=== PATIENT | male | born 1960 | race Caucasian/White ===

== ENCOUNTER 2018-04-07 06:10 | Day surgery (SDC) | payer MEDICARE, SELFPAY ==
[2018-04-07 06:58] VITALS: BP 117/78; PULSE 77; RESP 16; TEMP 36.9; O2SAT 99; BMI 28.2
[2018-04-07] MEDS: Cefazolin 2 GM in 0.9% Normal Saline 100 ML IV (08:21)
[2018-04-07] MEDS: Bupivacaine Mpf 0.5% 30 ML VIAL (09:18)
--- NOTE | 2018-04-07 09:19 | DCINST_ITS ---
Discharge Diet: Light diet - advance as tolerated Discharge Activity: Return to Normal Activity, May Not Drive - for 2-3 days or while taking narcotic pain meds., May Shower - with the bandage in place 1-2 days after surgery. Lifting Restrictions: 20 pounds for 2 weeks. Additional Activity Instructions:: Climbing stairs is fine, walking is encouraged. Sitting in bed may be uncomfortable. Sitting up using your lateral muscles (sitting up sideways) is usually more comfortable. Do not drive, work heavy equipment of sign legal documents for 24 hours. If your hernia repair was an ingunial repair, you may have scrotal swelling, an ice pack and/or athletic support can provide more comfort. Pain medications may cause nausea, you should typically eat light foods as you take your pain medications. Pain medications may also cause constipation. If you have difficulty with this, discuss with your doctor. Call your doctor if your incision/area has: Continuous Slow Oozing, Sudden Increased Bleeding, Increased Pain/ Swelling, Increased Redness, Foul Smelling Discharge Call your doctor if you observe: Fever of 101 or Higher, Inability to urinate Suture Line Care: Avoid Pulling/Pushing, Avoid Pinching/Bending Change Dressing in (Days):: 2 - Leave steri-strips for 1 week. May protect with a guaze bandaid. Cleanse incision/area with: Keep Dressing Clean & Dry Allergies/Adverse Reactions: Allergies No Known Allergies Allergy (Verified 03/31/18 14:07) Medications to take at Discharge aspirin 81 mg chewable tablet 81 mg PO DAILY 02/04/18 dexlansoprazole 60 mg capsule,biphase delayed release 60 mg PO QDAY 02/04/18 lisinopril 20 mg tablet 20 mg PO QDAY 02/04/18 loratadine 10 mg tablet 10 mg PO QDAY 02/04/18 multivitamin tablet 1 tab PO QAM 02/04/18 quetiapine 25 mg tablet 25 mg PO BID tab 02/04/18 atorvastatin 20 mg tablet 20 mg PO QDAY #90 tab 04/02/18 Oxycodone HCl/Acetaminophen [Percocet 5/325] 1 - 2 tablet PO Q4H PRN PRN 7 Days #15 tablet 04/07/18 The following prescriptions were given: Oxycodone HCl/Acetaminophen [Percocet 5/325] 1 - 2 tablet PO Q4H PRN PRN 7 Days #15 tablet PRN Reason: Pain Primary Care Physician: Vincenzo Ibarra, [Primary Care Provider] - Please Follow Up With: Glenroy Cohen MD When: Please call tomorrow to schedule 2 week follow up appointment. [phone]
--- NOTE | 2018-04-07 09:19 | PCM.OPRPT ---
Problem List (1) Left inguinal hernia Status: Acute Report of Operation Date of Procedure: 04/07/18 Pre-Operative Diagnosis: Left inguinal hernia Post-Operative Diagnosis: Left inguinal hernia Surgery/Procedure Performed:: Robotic assisted laparoscopic left inguinal hernia repair with mesh Description of Surgical Findings:: Patient had a left indirect hernia. Specimen's removed: None Description of Procedure: The patient was brought back to the operating room and general anesthesia was induced. Next the abdomen was prepped and draped in usual sterile fashion. A small incision was made superior to the umbilicus and the fascia was grasped and elevated. A Veress needle was placed into the abdomen and a drop test was completed and was normal. Next the abdomen was insufflated 15 mmHg. The Veress needle was removed and the camera port was placed into the abdomen. The camera was then placed into the abdomen to check for any injuries upon entry and there were none. Next the inguinal regions were examined and it appeared the patient had a left indirect hernia. The right groin appeared normal. Next an 8 port was placed in the right lower quadrant and left lower quadrant under direct visualization. The patient was then placed in the steep Trendelenburg position and the robot was docked. Next using scissors and electrocautery the peritoneum was scored in the left groin and dissected free. The dissection was carried inferiorly until the hernia sac was encountered. The hernia sac was reduced into the abdomen and dissected free from all adhesions. This dissection was carried posteriorly to allow enough room for the mesh to fit. There did not appear to be a direct hernia. Next a piece of pro-yarn sorter mesh was trimmed and placed into the abdomen. This was placed in the left inguinal region and unfolded. This covered the hernia very adequately. The peritoneum was then reapproximated using a running 3-0V lock suture. The mesh was completely covered at the end of the case. The abdomen was inspected once more and there appeared to be good hemostasis and coverage of the mesh. Next the robot was undocked and the patient was placed in level position and the ports removed under direct visualization. All incisions were then anesthetized with Marcaine and closed with interrupted 4-0 Monocryl sutures, Steri-Strips, and bandages. The testicles were checked to be in the scrotum at the end the case. The patient tolerated the procedure well and was brought to PACU in stable condition. Grafts/Implants Used: Pro-yarn sorter mesh - Admit VTE Documentation VTE Mechan Device Prophylaxis: SCD's
--- NOTE | 2018-04-07 09:23 | OP.PCM_ITS ---
Problem List (1) Left inguinal hernia Status: Acute Report of Operation Date of Procedure: 04/07/18 Pre-Operative Diagnosis: Left inguinal hernia Post-Operative Diagnosis: Left inguinal hernia Surgery/Procedure Performed:: Robotic assisted laparoscopic left inguinal hernia repair with mesh Description of Surgical Findings:: Patient had a left indirect hernia. Specimen's removed: None Description of Procedure: The patient was brought back to the operating room and general anesthesia was induced. Next the abdomen was prepped and draped in usual sterile fashion. A small incision was made superior to the umbilicus and the fascia was grasped and elevated. A Veress needle was placed into the abdomen and a drop test was completed and was normal. Next the abdomen was insufflated 15 mmHg. The Veress needle was removed and the camera port was placed into the abdomen. The camera was then placed into the abdomen to check for any injuries upon entry and there were none. Next the inguinal regions were examined and it appeared the patient had a left indirect hernia. The right groin appeared normal. Next an 8 port was placed in the right lower quadrant and left lower quadrant under direct visualization. The patient was then placed in the steep Trendelenburg position and the robot was docked. Next using scissors and electrocautery the peritoneum was scored in the left groin and dissected free. The dissection was carried inferiorly until the hernia sac was encountered. The hernia sac was reduced into the abdomen and dissected free from all adhesions. This dissection was carried posteriorly to allow enough room for the mesh to fit. There did not appear to be a direct hernia. Next a piece of pro-manager front office mesh was trimmed and placed into the abdomen. This was placed in the left inguinal region and unfolded. This covered the hernia very adequately. The peritoneum was then reapproximated using a running 3-0V lock suture. The mesh was completely covered at the end of the case. The abdomen was inspected once more and there appeared to be good hemostasis and coverage of the mesh. Next the robot was undocked and the patient was placed in level position and the ports removed under direct visualization. All incisions were then anesthetized with Marcaine and closed with interrupted 4-0 Monocryl sutures, Steri-Strips, and bandages. The testicles were checked to be in the scrotum at the end the case. The patient tolerated the procedure well and was brought to PACU in stable condition. Grafts/Implants Used: Pro-manager front office mesh - Admit VTE Documentation VTE Mechan Device Prophylaxis: SCD's
[2018-04-07 09:30] VITALS: BP 117/78; BP 131/80; PULSE 82; RESP 18; TEMP 36.6; O2SAT 100
[2018-04-07 09:45] VITALS: BP 112/80; BP 117/78; PULSE 83; RESP 18; O2SAT 94
[2018-04-07 10:00] VITALS: BP 114/70; BP 117/78; PULSE 77; RESP 18; TEMP 36.9; O2SAT 99
[2018-04-07 11:28] VITALS: BP 117/71; BP 117/78; PULSE 90; RESP 20; O2SAT 97
== END 2018-04-07 11:31 | disposition home or self-care (01) ==
LOC: SDC 06:11 → AC 06:14
PROVIDERS: Family Provider Family Medicine; PCP Family Medicine; Visit Provider Surgery
PROC: 0YQ64ZZ Repair Left Inguinal Region, Percutaneous Endoscopic Approach (ICD-10-PCS; CPT 49650; principal; 2018-04-07 07:40)
DX: K40.90 Unilateral inguinal hernia, without obstruction or gangrene, not specified as recurrent (principal); K21.9 Gastro-esophageal reflux disease without esophagitis; E78.00 Pure hypercholesterolemia, unspecified; F32.9 Major depressive disorder, single episode, unspecified; Z79.82 Long term (current) use of aspirin; Z79.899 Other long term (current) drug therapy; Z87.891 Personal history of nicotine dependence
CPT/HCPCS: 00840; 49650; 93005; J7120; J2405

== ENCOUNTER → 2018-05-26 09:27 | Outpatient (CLI) | payer MEDICARE, SELFPAY ==
[2018-05-26 11:12] LABS: ALB/GLOB Ratio 1.1 RATIO (0.9-2.4); AST(SGOT) 18 U/L (15-37); Alanine Aminotransfer ALT/SGPT 32 U/L (16-61); Albumin, Serum 4.3 g/dL (3.2-5.0); Alkaline Phosphatase 94 U/L (45-117); Anion Gap 10 (5-15); BUN 23 mg/dL (7-18); BUN/Creat Ratio 22.8 RATIO (10-20); Calcium,Total 8.9 mg/dL (8.5-10.1); Chloride 106 mmol/L (98-107); Cholesterol 194 mg/dL (200); Creatinine, Serum 1.01 mg/dL (0.70-1.30); EST Glomerular Filtration Rate 81 mL/min (>60); Est Glom Filt Rate - Afr Amer 98 mL/min (>60); Glucose 113 mg/dL (74-106); High Density Lipoprotein 60 mg/dL; Protein, Total 8.3 g/dL (6.4-8.2); Sodium Level 140 mmol/L (136-145); Triglycerides 87 mg/dL; Very Low Density Lipoprotein 17 mg/dL (5-40)
== END ==
PROVIDERS: Family Provider Family Medicine; PCP Family Medicine; Visit Provider Family Medicine
DX: I10 Essential (primary) hypertension (principal); E78.5 Hyperlipidemia, unspecified
CPT/HCPCS: 36415; 80053; 80061

== ENCOUNTER → 2018-09-24 14:20 | Outpatient (CLI) | payer MEDICARE, SELFPAY ==
[2018-09-24 13:35] VITALS: BMI 27.1
--- NOTE | 2018-09-24 14:22 | RAD_ITS ---
STUDY: X-RAY - RIGHT KNEE REASON FOR EXAM: Male, 58 years old. Anterior knee pain and patellar pain following a fall. TECHNIQUE: 3 view(s) of the knee. COMPARISON: None. FINDINGS: There is evidence of a nondisplaced transverse fracture through the midportion of the patella. Normal visualized distal femur. The patient is status post open reduction and internal fixation of the tibial plateau fracture utilizing a sideplate and screw fixation device. Normal proximal tibiofibular articulation. There is mild degenerative arthrosis of the medial femorotibial compartment. Normal lateral femorotibial compartment. Normal patellofemoral articulation. Prepatellar soft tissue swelling. Small joint effusion. RAD/Knee 3 Views IMPRESSION: Nondisplaced fracture through the midportion of the patella with soft tissue swelling and small joint effusion. Prior open reduction and internal fixation of the proximal tibial plateau Electronically Signed: Felipe Cary MD at 14:50 EST Tel [phone], Service support ,
== END ==
PROVIDERS: Family Provider Family Medicine; PCP Family Medicine; Referring Provider Family Medicine; Visit Provider Family Medicine
DX: M25.561 Pain in right knee (principal)
CPT/HCPCS: 73562

== ENCOUNTER 2018-10-02 07:52 | Day surgery (SDC) | payer MEDICARE, SELFPAY ==
[2018-09-28 08:28] VITALS: BMI 27.1
[2018-10-02] VITALS (7 sets, daily range): BP systolic 128–150; BP diastolic 84–95; PULSE 79–93; RESP 14–16; TEMP 36.7–37.1; O2SAT 95–100; BMI 27.2
[2018-10-02 08:27] LABS: Hematocrit 39.7 % (40-54); Hemoglobin 12.6 g/dl (13.0-16.5); Mean Corp Hgb Conc 31.7 g/gl (32-36); Mean Corpuscular Hgb 30.9 pg (27.0-32.0); Mean Corpuscular Volume 97.3 fL (80-94); Mean Platelet Vol. 10.4 fl (6.2-12.0); Platelet Count 367 K/mm3 (150-450); RBC Distribution Width CV 12.3 % (11.6-14.6); RBC Distribution Width SD 43.8 fl (35.1-43.9); Red Blood Count 4.08 M/mm3 (4.6-6.2); Scan Indicated on CBC? Y/N NO; White Blood Count 10.6 K/mm3 (4.4-11.0)
--- NOTE | 2018-10-02 10:00 | RAD_ITS ---
STUDY: X-RAY - RIGHT KNEE REASON FOR EXAM: Male, 58 years old. ORIF of the patellar fracture. TECHNIQUE: 2 coned-down view(s) of the knee. COMPARISON: None. FINDINGS: Satisfactory screw fixation of the patellar fracture. RAD/Knee 1 or 2 Views IMPRESSION: Satisfactory screw fixation of the patellar fracture. Electronically Signed: Felipe Cary MD at 13:02 EST Tel [phone], Service support ,
[2018-10-02] MEDS: Cefazolin 2 GM in 0.9% Normal Saline 100 ML IV (10:41)
[2018-10-02] MEDS: Mupirocin Ointment 22gm Tube 1 APPLIC (12:12)
--- NOTE | 2018-10-02 12:41 | DCINST_ITS ---
Discharge Diet: No Restrictions - wbat left leg with knee locked in extension, knee locked in extension at night, may range knee 0-30 when seated, follow up in 2 weeks, ankle pumps, ice 20 mins on/off, and elevate leg above heart Discharge Activity: May Not Drive May shower in (days): 1 Ice area for (Minutes): 20 - Every hour while awake. Weight Bearing Status: Weight bearing as tolerated Keep extremity elevated above heart level: Operative Extremity Call your doctor if your incision/area has: Continuous Slow Oozing, Sudden Increased Bleeding, Increased Pain/ Swelling, Increased Redness, Foul Smelling Discharge Call your doctor if you observe: Fever of 101 or Higher, Coldness, Increased Pain, Numbness or Tingling, Change in Color, Calf discomfort Allergies/Adverse Reactions: Allergies No Known Allergies Allergy (Verified 09/30/18 10:42) Medications to take at Discharge aspirin 81 mg chewable tablet 81 mg PO DAILY 02/04/18 loratadine 10 mg tablet 10 mg PO QDAY 02/04/18 multivitamin tablet 1 tab PO QAM 02/04/18 naproxen 500 mg tablet 500 mg PO BID #60 tab 09/24/18 Atorvastatin Calcium [Lipitor] 20 mg PO QDAY 09/30/18 Dexlansoprazole [Dexilant] 60 mg PO QDAY 09/30/18 Lisinopril 20 mg PO QDAY 09/30/18 Quetiapine Fumarate [Seroquel] 25 mg PO BID 09/30/18 Primary Care Physician: Vincenzo Ibarra DO [Primary Care Provider] - Test Results: Test results from this visit will be discussed in further detail at your follow- up appointment, if applicable. Please Follow Up With: Dione Agosto DO - [phone]
--- NOTE | 2018-10-02 12:41 | PCM.OPRPT ---
Report of Operation Date of Procedure: 10/02/18 Pre-Operative Diagnosis: left displaced patella fracture Post-Operative Diagnosis: same Surgery/Procedure Performed:: orif left patella document control assistant: Mary Villanueva Type of Anesthesia:: General Anesthesiologist: Mati Patterson Replaced: 1200cc LR Description of Procedure: Preop note Patient is a 58-year-old male with significant past medical history who fell and had pain in his right patella had pain and deformity since that time was seen in our office noted to have a transverse patella fracture malaligned displaced. Risks benefits and alternatives surgery discussed with patient. Risks include but not limited to blood loss, blood clot, infection, neurovascular injury, failure procedure, loss of life and loss of limb. Patient is aware please note comorbidities decreased function of this leg secondary to injury he sustained many years ago to the right tib-fib. We will continue with right open reduction internal internal fixation of the patella. Operative note Patient seen and examined preoperative holding area. right knee was marked. Patient is brought to the operating room placed supine on the operating table. Sign in, anesthesia, antibiotics were administered. right leg was prepped and draped in usual sterile fashion with a tourniquet around his upper thIgh. Used fluoroscopy to ascertain the level of the incision and the site of the fracture. Timeout was performed. We then elevated exsanguinated the leg and tourniquet was raised her pressure 250 torr. We then made an incision over the top of his knee extending just proximal to his patella proximal pole and going down to about 2-3 cm past his distal pole of his patella. We used a 10 blade. We then dissected down times the level of the retinaculum we were able to palpate the fracture we then curetted the fracture out with a curette debrided out for any loose pieces. We then used irrigation to further irrigate the joint as well as the fracture pieces into this and copious amounts of sterile saline. We then placed a pointed clamps across the fracture site and reduced it noted in fluoroscopy and AP lateral planes good reduction of the fracture site that point. We then picked out her K wire in the back table and placed that across the fracture site and after placing the K wires we then bovied down to its the insertion into the patella and over drilled to the plate out a 4.5 screws there cannulated Synthes screws. We then placed our 3.2 drill across the K wires going the proximal aspect of the incision of the fracture but not across the fracture site itself. We then measured appropriately and placed to 4.5 cannulated partially threaded screws across the fracture site. We noted good reduction of the fracture site at that point. We then placed a fiber tape through the screws in a crisscross fashion and then again noted to be better reduction at that point. We then placed a #2 FiberWire closed in a retinaculum that we did see and also did a FiberWire #2 FiberWire in a cerclage fashion around the entire patella. We irrigated the knee with copious amounts of sterile saline. We oversewed the retinaculum on top of the at the site of the fracture with 0 Vicryl the skin was closed with 2-0 Vicryl and eleno and knee locked in extension was placed in a hinged brace. Brace will be unlocked from 0-30 during flexion and 0 extension during ambulation and at night. Patient transferred to recovery room in stable condition there is no complications. Total tourniquet time was 60 minutes. Postoperative note Weight-bear as tolerated right leg Follow-up in 2 weeks Prescriptions at Hospital pharmacy Call with increased pain numbness tingling or further issues arise Told to elevate ice ankle pumps This note was generated with [employer] dictation software. It may contain incorrect words, spelling, and punctuation that were not noted in checking the note before signing.
[2018-10-02] MEDS: Ondansetron 4 MG/2 ML Vial IV (14:45)
[2018-10-02] MEDS: HYDROcodone Bitartrate/Apap 5/325 Tablet PO (14:45)
== END 2018-10-02 16:07 | disposition home or self-care (01) ==
LOC: SDC 07:52 → AC 07:53
PROVIDERS: Anesthesiology; Family Provider Family Medicine; PCP Family Medicine; Referring Provider Orthopaedic Surgery; Visit Provider Orthopaedic Surgery
PROC: (CPT 27524; principal; 2018-10-02 09:45)
DX: S82.031A Displaced transverse fracture of right patella, initial encounter for closed fracture (principal); W19.XXXA Unspecified fall, initial encounter; Y93.9 Activity, unspecified; Y92.89 Other specified places as the place of occurrence of the external cause; Y99.9 Unspecified external cause status; I10 Essential (primary) hypertension; F31.9 Bipolar disorder, unspecified; E78.5 Hyperlipidemia, unspecified; Z87.891 Personal history of nicotine dependence
CPT/HCPCS: 27524; 36415; 73560; 76000; 85027; J7120; J2405

== ENCOUNTER → 2018-10-15 09:05 | Outpatient (CLI) | payer MEDICARE, SELFPAY ==
[2018-10-15 08:46] VITALS: BMI 27.2
--- NOTE | 2018-10-15 09:07 | RAD_ITS ---
STUDY: X-RAY - RIGHT KNEE REASON FOR EXAM: Postsurgical follow-up. TECHNIQUE: 2 view(s) of the knee. COMPARISON: Radiographs 09/24/2018. FINDINGS: Normal visualized distal femur. There is chronic fracture deformity of the tibial plateau with intact orthopedic hardware. There are 2 orthopedic screws transfixing a recent patellar fracture with anatomic alignment. Normal medial femorotibial compartment. Normal lateral femorotibial compartment. Normal patellofemoral articulation. There is anterior soft tissue swelling. RAD/Knee 1 or 2 Views IMPRESSION: ORIF of patellar fracture in anatomic position. Chronic fracture deformity of the tibial plateau. Anterior soft tissue swelling. Electronically Signed: Ashu Gross MD at 11:58 EST Tel , Service support ,
== END ==
PROVIDERS: Family Provider Family Medicine; PCP Family Medicine; Referring Provider Orthopaedic Surgery; Visit Provider Orthopaedic Surgery
DX: M25.561 Pain in right knee (principal)
CPT/HCPCS: 73560

== ENCOUNTER → 2018-12-24 08:14 | Outpatient (CLI) | payer MEDICARE, SELFPAY ==
[2018-11-12 08:02] VITALS: BMI 27.2
--- NOTE | 2018-12-24 08:15 | RAD_ITS ---
STUDY: X-RAY - RIGHT KNEE REASON FOR EXAM: Male, 58 years old. Knee pain postsurgery. TECHNIQUE: 4 view(s) of the knee. COMPARISON: 2 views of the right knee October 15, 2018. FINDINGS: Normal visualized distal femur. Prior ORIF of a proximal tibial metaphyseal fracture with a lateral metal side plate and numerous screws again noted. Normal visualized proximal fibula. Prior ORIF of a mid patellar fracture with 2 metal screws passing superiorly inferior also unchanged. There is no demonstrated destructive osseous lesion. Normal medial femorotibial compartment. Normal lateral femorotibial compartment. There is mild degenerative arthrosis of the patellofemoral articulation. There is arthrosis of the proximal tibiofibular articulation. There is no demonstrated joint effusion. There is mild prepatellar soft tissue swelling as well as thickening of the lower quadriceps tendon and upper patellar tendon. RAD/Knee 4 or More Views IMPRESSION: Postsurgical and degenerative changes of the right knee, grossly unchanged from October 15, 2018. Electronically Signed: Margarito Zarate MD at 20:03 EST , Service support ,
== END ==
PROVIDERS: Family Provider Family Medicine; PCP Family Medicine; Referring Provider Physician Assistant; Visit Provider Physician Assistant
DX: M25.561 Pain in right knee (principal)
CPT/HCPCS: 73564

== ENCOUNTER → 2019-04-28 | Outpatient (CLI) | payer MEDICARE, SELFPAY ==
[2019-04-28 13:06] VITALS: BMI 27.2
[2019-04-28 14:55] LABS: ALB/GLOB Ratio 1.1 RATIO (0.9-2.4); AST(SGOT) 18 U/L (15-37); Alanine Aminotransfer ALT/SGPT 36 U/L (16-61); Albumin, Serum 4.1 g/dL (3.2-5.0); Alkaline Phosphatase 93 U/L (45-117); Anion Gap 9 (5-15); BUN 20 mg/dL (7-18); BUN/Creat Ratio 19.6 RATIO (10-20); Calcium,Total 9.4 mg/dL (8.5-10.1); Chloride 106 mmol/L (98-107); Cholesterol 195 mg/dL (200); Creatinine, Serum 1.02 mg/dL (0.70-1.30); EST Glomerular Filtration Rate 80 mL/min (>60); Est Glom Filt Rate - Afr Amer 97 mL/min (>60); Globulin 3.9 g/dL (2.2-4.2); Glucose 96 mg/dL (74-106); High Density Lipoprotein 50 mg/dL; Potassium 4.2 mmol/L (3.5-5.1); Sodium Level 142 mmol/L (136-145); Triglycerides 178 mg/dL; Very Low Density Lipoprotein 36 mg/dL (5-40)
== END | disposition home or self-care (01) ==
LOC: LAB 13:57
PROVIDERS: Family Provider Family Medicine; PCP Family Medicine; Referring Provider Family Medicine; Visit Provider Family Medicine
DX: I10 Essential (primary) hypertension (principal); E78.5 Hyperlipidemia, unspecified
CPT/HCPCS: 36415; 80053; 80061

== ENCOUNTER → 2019-06-16 15:21 | Outpatient (CLI) | payer MEDICARE, SELFPAY ==
[2019-06-16 14:57] VITALS: BMI 27.2
--- NOTE | 2019-06-16 15:30 | RAD_ITS ---
STUDY: X-RAY - ABDOMEN/PELVIS REASON FOR EXAM: Male, 58 years old. Diarrhea and constipation TECHNIQUE: Two AP supine views of the abdomen and pelvis. COMPARISON: None. FINDINGS: Normal visualized lung bases. There is a moderate amount of colonic fecal material. There is no demonstrated free abdominal air. The visualized liver, spleen and kidneys are grossly normal in size and morphology. Normal soft tissue structures. Normal visualized osseous structures. RAD/Abdomen Single View IMPRESSION: Fecal retention throughout the colon Electronically Signed: Migel Holland DO at 18:07 EDT Tel , Service support ,
== END ==
PROVIDERS: Family Provider Family Medicine; PCP Family Medicine; Referring Provider Nurse Practitioner Family; Visit Provider Nurse Practitioner Family
DX: K59.00 Constipation, unspecified (principal)
CPT/HCPCS: 74018

== ENCOUNTER → 2020-04-26 | Outpatient (CLI) | payer MEDICARE, SELFPAY ==
[2020-04-26 13:02] VITALS: BMI 27.2
[2020-04-26 15:51] LABS: ALB/GLOB Ratio 1.1 RATIO (0.9-2.4); AST(SGOT) 20 U/L (15-37); Alanine Aminotransfer ALT/SGPT 33 U/L (16-61); Albumin, Serum 4.1 g/dL (3.2-5.0); Alkaline Phosphatase 79 U/L (45-117); Anion Gap 6 (5-15); BUN 16 mg/dL (7-18); Calcium,Total 9.2 mg/dL (8.5-10.1); Chloride 109 mmol/L (98-107); Cholesterol 192 mg/dL (200); Creatinine, Serum 1.14 mg/dL (0.70-1.30); EST Glomerular Filtration Rate 70 mL/min (>60); Est Glom Filt Rate - Afr Amer 85 mL/min (>60); Globulin 3.8 g/dL (2.2-4.2); Glucose 106 mg/dL (74-106); High Density Lipoprotein 54 mg/dL; Potassium 4.5 mmol/L (3.5-5.1); Protein, Total 7.9 g/dL (6.4-8.2); Sodium Level 141 mmol/L (136-145); Triglycerides 110 mg/dL; Very Low Density Lipoprotein 22 mg/dL (5-40)
== END | disposition home or self-care (01) ==
PROVIDERS: PCP Family Medicine; Referring Provider Family Medicine; Visit Provider Family Medicine
DX: E78.5 Hyperlipidemia, unspecified (principal); I10 Essential (primary) hypertension
CPT/HCPCS: 36415; 80053; 80061

== ENCOUNTER → 2021-03-19 15:10 | Outpatient (CLI) | payer MEDICARE, SELFPAY ==
--- NOTE | 2021-03-19 15:12 | RAD_ITS ---
STUDY: X-RAY - LEFT HAND REASON FOR EXAM: Male, 60 years old. Left 5th digit pain and swelling TECHNIQUE: 3 view(s) of the hand. COMPARISON: None. FINDINGS: Normal radiocarpal articulation. Normal distal radioulnar joint. Normal visualized carpal bones. Normal carpal articulations Normal carpometacarpal articulation of the thumb. Normal second through fifth carpometacarpal joints. Normal metacarpi. Normal metacarpophalangeal joint of the thumb. Normal interphalangeal joint of the thumb. Normal proximal and distal phalanges of the thumb. Normal metacarpophalangeal joints of the second through fifth fingers. Normal proximal and distal interphalangeal joints of the second through fifth fingers. Nondisplaced transverse fracture through the middle phalanx of the fifth digit. Soft tissue swelling. RAD/Hand Min 3 Views IMPRESSION: Soft tissue swelling and nondisplaced transverse fracture through the mid portion of the middle phalanx of the fifth digit. Electronically Signed: Felipe Cary MD at 15:44 EDT , Service support ,
== END ==
LOC: RAD 15:11
PROVIDERS: PCP Family Medicine; Referring Provider Physician Assistant; Visit Provider Physician Assistant
DX: M79.645 Pain in left finger(s) (principal)
CPT/HCPCS: 73130

== ENCOUNTER → 2021-04-27 11:29 | Outpatient (CLI) | payer MEDICARE, SELFPAY ==
[2021-04-27 11:02] VITALS: BMI 28.4
[2021-04-27 12:51] LABS: ALB/GLOB Ratio 1.2 RATIO (0.9-2.4); AST(SGOT) 18 U/L (15-37); Alanine Aminotransfer ALT/SGPT 35 U/L (16-61); Albumin, Serum 4.1 g/dL (3.2-5.0); Alkaline Phosphatase 94 U/L (45-117); Anion Gap 5 (5-15); BUN 18 mg/dL (7-18); BUN/Creat Ratio 16.8 RATIO (10-20); Calcium,Total 9.1 mg/dL (8.5-10.1); Chloride 108 mmol/L (98-107); Cholesterol 198 mg/dL (200); Creatinine, Serum 1.07 mg/dL (0.70-1.30); EST Glomerular Filtration Rate 75 mL/min (>60); Est Glom Filt Rate - Afr Amer 91 mL/min (>60); Globulin 3.5 g/dL (2.2-4.2); Glucose 127 mg/dL (74-106); High Density Lipoprotein 47 mg/dL; Potassium 4.4 mmol/L (3.5-5.1); Protein, Total 7.6 g/dL (6.4-8.2); Sodium Level 140 mmol/L (136-145); Triglycerides 273 mg/dL; Very Low Density Lipoprotein 55 mg/dL (5-40)
== END ==
LOC: BIMLAB 11:29
PROVIDERS: PCP Family Medicine; Referring Provider Family Medicine; Visit Provider Family Medicine
DX: I10 Essential (primary) hypertension (principal)
CPT/HCPCS: 36415; 80053; 80061

== ENCOUNTER → 2021-05-18 10:54 | Outpatient (CLI) | payer MEDICARE, SELFPAY ==
[2021-04-27 11:02] VITALS: BMI 28.4
--- NOTE | 2021-05-18 10:58 | RAD_ITS ---
STUDY: X-RAY - LEFT HAND, ATTENTION FIFTH FINGER REASON FOR EXAM: Male, 60 years old. Follow up fracture TECHNIQUE: 3 view(s) of the finger were obtained. COMPARISON: Comparison is made with prior study dated 03/19/2021. FINDINGS: Normal metacarpal head. Normal metacarpophalangeal joint. Normal proximal phalanx. Healing fracture of the midportion of the middle phalanx fifth digit. The alignment is maintained. Normal distal phalanx. Normal proximal interphalangeal joint. Normal distal interphalangeal joint. RAD/Finger(s) Min 2 Views IMPRESSION: Healing fracture of the midportion of the middle phalanx of the fifth digit. Alignment is maintained Electronically Signed: Felipe Cary MD at 15:24 EDT , Service support ,
== END ==
LOC: RAD 10:57
PROVIDERS: PCP Family Medicine; Referring Provider Family Medicine; Visit Provider Family Medicine
DX: S62.657D Nondisplaced fracture of middle phalanx of left little finger, subsequent encounter for fracture with routine healing (principal)
CPT/HCPCS: 73140

== ENCOUNTER → 2022-03-20 | Outpatient (CLI) | payer MEDICARE, SELFPAY | END | disposition home or self-care (01) | LOC: LABSPEC 10:26 | PROVIDERS: PCP Family Medicine; Referring Provider Nurse Practitioner Family; Visit Provider Nurse Practitioner Family | DX: J06.9 Acute upper respiratory infection, unspecified (principal); Z20.822 Contact with and (suspected) exposure to COVID-19 | CPT/HCPCS: 87635; U0003; U0005 ==

== ENCOUNTER → 2022-04-18 | Outpatient (CLI) | payer MEDICARE, SELFPAY ==
[2022-04-18 15:53] LABS: ALB/GLOB Ratio 1.1 RATIO (0.9-2.4); AST(SGOT) 24 U/L (15-37); Alanine Aminotransfer ALT/SGPT 39 U/L (16-61); Albumin, Serum 4.3 g/dL (3.2-5.0); Alkaline Phosphatase 80 U/L (45-117); Anion Gap 4 (5-15); BUN 23 mg/dL (7-18); BUN/Creat Ratio 22.3 RATIO (10-20); Calcium,Total 9.7 mg/dL (8.5-10.1); Chloride 107 mmol/L (98-107); Cholesterol 215 mg/dL (200); Creatinine, Serum 1.03 mg/dL (0.70-1.30); EST Glomerular Filtration Rate 78 mL/min (>60); Est Glom Filt Rate - Afr Amer 95 mL/min (>60); Globulin 3.9 g/dL (2.2-4.2); Glucose 119 mg/dL (74-106); High Density Lipoprotein 48 mg/dL; Potassium 3.9 mmol/L (3.5-5.1); Protein, Total 8.2 g/dL (6.4-8.2); Sodium Level 138 mmol/L (136-145); Triglycerides 131 mg/dL; Very Low Density Lipoprotein 26 mg/dL (5-40)
== END | disposition home or self-care (01) ==
LOC: BIMLAB 11:31
PROVIDERS: PCP Family Medicine; Visit Provider Family Medicine
DX: I10 Essential (primary) hypertension (principal); F31.9 Bipolar disorder, unspecified; E78.5 Hyperlipidemia, unspecified
CPT/HCPCS: 36415; 80053; 80061

== ENCOUNTER → 2022-08-27 | Outpatient (CLI) | payer MEDICARE, SELFPAY ==
--- NOTE | 2022-08-27 14:43 | RAD_ITS ---
STUDY: X-RAY - RIGHT FOOT CLINICAL: Male, 62 years old. Acute pain after trauma TECHNIQUE: 3 view(s) of the foot. COMPARISON: None. FINDINGS: Bones are demineralized. There is an acute, minimally displaced, osteochondral fracture in the proximal phalanx of the great toe with associated soft tissue swelling. Normal talus and tarsal bones. Small calcaneal spurs. Normal visualized subtalar, talonavicular, calcaneocuboid, tarsal and tarsometatarsal articulations. Normal metatarsi. There is degenerative arthrosis of the metatarsophalangeal joint of the hallux . Normal tibial and fibular sesamoid bones. Normal interphalangeal joint of the great toe. Normal distal phalanx of the great toe. Mild PIP and DIP joint arthrosis. Normal interphalangeal joints and phalanges of the lesser toes. The soft tissue structures are unremarkable. RAD/Foot min 3 Views IMPRESSION: Acute, minimally displaced osteochondral fracture in the proximal phalanx of the great toe with soft tissue swelling Generalized osteopenia Polyarticular arthrosis Electronically Signed: Margarito Kelley MD at 8:27 EDT ,
== END | disposition home or self-care (01) ==
LOC: RAD 14:33
PROVIDERS: PCP Family Medicine; Referring Provider Physician Assistant; Visit Provider Physician Assistant
DX: M79.673 Pain in unspecified foot (principal); T14.90XA Injury, unspecified, initial encounter
CPT/HCPCS: 73630

== ENCOUNTER → 2023-04-21 | Outpatient (CLI) | payer MEDICARE, SELFPAY ==
[2023-04-21 13:23] LABS: ALB/GLOB Ratio 1.1 RATIO (0.9-2.4); AST(SGOT) 20 U/L (15-37); Alanine Aminotransfer ALT/SGPT 34 U/L (16-61); Alkaline Phosphatase 83 U/L (45-117); Anion Gap 5 (5-15); BUN 19 mg/dL (7-18); BUN/Creat Ratio 18.6 RATIO (10-20); Calcium,Total 9.5 mg/dL (8.5-10.1); Chloride 109 mmol/L (98-107); Cholesterol 178 mg/dL (200); Creatinine, Serum 1.02 mg/dL (0.70-1.30); EST Glomerular Filtration Rate 79 mL/min (>60); Est Glom Filt Rate - Afr Amer 96 mL/min (>60); Globulin 3.7 g/dL (2.2-4.2); Glucose 148 mg/dL (74-106); High Density Lipoprotein 49 mg/dL; Potassium 4.5 mmol/L (3.5-5.1); Protein, Total 7.7 g/dL (6.4-8.2); Sodium Level 139 mmol/L (136-145); Triglycerides 151 mg/dL; Very Low Density Lipoprotein 30 mg/dL (5-40)
== END | disposition home or self-care (01) ==
LOC: BIMLAB 10:56
PROVIDERS: PCP Family Medicine; Visit Provider Family Medicine
DX: I10 Essential (primary) hypertension (principal)
CPT/HCPCS: 36415; 80053; 80061

== ENCOUNTER → 2024-04-21 | Outpatient (CLI) | payer MEDICARE, SELFPAY ==
[2024-04-21 13:55] LABS: ALB/GLOB Ratio 1.3 RATIO (0.9-2.4); AST(SGOT) 19 U/L (15-37); Alanine Aminotransfer ALT/SGPT 24 U/L (16-61); Albumin, Serum 4.3 g/dL (3.2-5.0); Alkaline Phosphatase 83 U/L (45-117); Anion Gap 6 (5-15); BUN 16 mg/dL (7-18); BUN/Creat Ratio 15.2 RATIO (10-20); Chloride 108 mmol/L (98-107); Creatinine, Serum 1.05 mg/dL (0.70-1.30); EST Glomerular Filtration Rate 76 mL/min (>60); Est Glom Filt Rate - Afr Amer 92 mL/min (>60); Globulin 3.2 g/dL (2.2-4.2); Glucose 106 mg/dL (74-106); Potassium 4.9 mmol/L (3.5-5.1); Protein, Total 7.5 g/dL (6.4-8.2); Sodium Level 139 mmol/L (136-145)
== END | disposition home or self-care (01) ==
LOC: BIMLAB 09:07
PROVIDERS: PCP Family Medicine; Visit Provider Family Medicine
DX: I10 Essential (primary) hypertension (principal)
CPT/HCPCS: 36415; 80053; 83721

== ENCOUNTER → 2025-01-07 | Outpatient (CLI) | payer MEDICARE, SELFPAY ==
--- NOTE | 2025-01-07 10:02 | RAD_ITS ---
PROCEDURE: ELBOW MIN 3 VIEWS REASON FOR EXAM: Swelling of elbow TECHNIQUE: 3 view(s) of each elbow COMPARISON: None. FINDINGS: LEFT ELBOW: No visible fracture. No suspicious bone lesion. Normal alignment. No effusion. Soft tissues are unremarkable. RAD/Elbow min 3 Views IMPRESSION: No acute osseous or significant abnormality in the left elbow Reading Location: [facility]
== END | disposition home or self-care (01) ==
LOC: MTRAD 09:33
PROVIDERS: PCP Family Medicine; Referring Provider Family Medicine; Visit Provider Family Medicine
DX: M25.422 Effusion, left elbow (principal)
CPT/HCPCS: 73080

== ENCOUNTER → 2025-04-19 | Outpatient (CLI) | payer MEDICARE, SELFPAY ==
[2025-04-19 13:05] LABS: ALB/GLOB Ratio 1.6 RATIO (0.9-2.4); AST(SGOT) 22 U/L (<=37); Alanine Aminotransfer ALT/SGPT 22 U/L (<=46); Albumin, Serum 4.6 g/dL (3.4-4.8); Alkaline Phosphatase 81 U/L (40-129); Anion Gap 13 (5-15); BUN 13 mg/dL (4-19); BUN/Creat Ratio 13.2 RATIO (10-20); Calcium,Total 9.9 mg/dL (7.6-11.0); Carbon Dioxide 21.7 mmol/L (21.0-32.0); Chloride 106 mmol/L (98-108); Cholesterol 187 mg/dL (<=200); EST Glomerular Filtration Rate 85 (>60); Globulin 2.9 g/dL (2.2-4.2); Glucose 124 mg/dL (70-99); High Density Lipoprotein 43 mg/dL; Low Density Lipoprotein Calc. 114 mg/dL; PSA,Total - Annual Screen 0.72 ng/mL (0.02-4.00); Potassium 4.6 mmol/L (3.3-5.1); Protein, Total 7.5 g/dL (5.9-8.4); Sodium Level 140 mmol/L (133-145); Total Bilirubin 0.37 mg/dL (0.00-1.30); Triglycerides 149 mg/dL; Very Low Density Lipoprotein 30 mg/dL (5-40); cholesterol:hdl ratio screen 4.32
--- OUTSIDE RECORDS SUMMARY | 2025-04-19 22:08 | XMS RPT_ITS | CCD ---
Author Organization [facility] Care Team Providers Care Chief Medical Director Name Role Phone Dr. Vincenzo Ibarra Primary Care Provider [phone] Dr. Vincenzo Ibarra Referring Provider [phone] MARY LOU Clemens Attending Provider Unavailab Dr. Vincenzo Adam Attending Provider [phone] JOELLE GERMAN Attending Unavailable JOELLE GERMAN Referring Unavailable Dr. Vincenzo Ibarra Primary Care Provider [phone] Dr. Vincenzo Ibarra Attending Provider [phone] Dr. Vincenzo Ibarra Referring Provider [phone] Warren Carney Attending Unavailable Brown, Vincenzo R Referring Unavailable Brown, Vincenzo R Primary Care Unavailable Brown, Vincenzo R Referring Unavailable Brown, Vincenzo R Primary Care Unavailable Brown, Vincenzo R Attending Unavailable Brown, Vincenzo R Attending Unavailable Brown, Vincenzo R Primary Care Unavailable Brown, Vincenzo R Attending Unavailable Brown, Vincenzo R Referring Unavailable Brown, Vincenzo R Primary Care Unavailable Brown, Vincenzo R Referring Unavailable Franck Sheppard Attending Unavailable Brown, Vincenzo R Primary Care Unavailable Brown, Vincenzo R Referring Unavailable Brown, Vincenzo R Primary Care Unavailable Brown, Vincenzo R Attending Unavailable Brown, Vincenzo R Attending Unavailable Brown, Vincenzo R Referring Unavailable Brown, Vincenzo R Primary Care Unavailable Brown, Vincenzo R Attending Unavailable Brown, Vincenoz R Referring Unavailable Brown, Vincenzo R Primary Care Unavailable Dr. Vincenzo Ibarra DO Primary Care Provider Dr. Vincenzo Ibarra DO Attending Provider [phone] Dr. Vincenzo Ibarra DO Referring Provider [phone] Valarie VEE-CFranck Attending Provider Dr. Vincenzo Ibarra DO Primary Care Provider Dr. Vincenzo Ibarra DO Attending Provider Dr. Vincenzo Ibarra DO Referring Provider Medications Current Medications Medication Drug Class(es) Dates Sig (Normalized) Sig (Original) aspirin 81 mg chewable tablet (7 sources) Platelet Aggregation Inhibitor, Nonsteroidal Anti-inflammatory Drug Start: 02-04-2018 End: 05-11-2024 take 1 tablet by mouth once daily Aspirin 81 mg tablet,chewable Active 81 mg PO DAILY May 11, 2024 9:30am Multivitamin preparation (3 sources) Start: 02-04-2018 take 1 tablet by mouth once daily in the morning Multivitamin Active 1 TABLET PO EVERY MORNING February 04, 2018 4:48pm Start: 02-04-2018 take 1 tablet by saba th once daily in the morning Multivitamin Active 1 TABLET PO EVERY MORNING February 04, 2018 12:00am Multivitamin tablet (2 sources) Start: 02-04-2018 Multivitamin t ablet Active 1 {tbl} PO EVERY MORNING February 04, 2018 12:00am Completed/Discontinued Medications Medication Drug Class(es) Dates Sig (Normalized) Sig (Original) acetaminophen 500 mg oral tablet (5 sources) Start: 10-27-2019 End: 04-19-2025 take 1 tablet by mouth every six hours as needed Acetaminophen (Tylenol Extra Strength) 500 mg tablet Discontinued 500 mg PO EVERY 6 HOURS as needed October 27, 2019 1:00am April 19, 2025 9:08am acetaminophen 325 mg / HYDROcodone bitartrate 5 mg oral tablet (5 sources) Opioid Agonist Start: 10-02-2018 End: 10-07-2018 take 1-2 tablets by mouth every six hours as needed for pain Hydrocodone-Acetami nophen 1 TABLET tablet Discontinued 1 - 2 {tbl} PO EVERY 6 HOURS NEEDED as needed for Pain 40 5 October 02, 2018 1:00am October 06, 2018 1:00am October 07, 2018 1:08am take 1-2 tabs every 6 hrs as needed for pain,stop all other narcs and tylenol Start: 10-02-2018 End: 10-07-2018 take 1-2 tablets by mouth every six hours as needed for pain Hydrocodone-Acetaminophen Discontinued 1 - 2 TABLET PO EVERY 6 HOURS NEEDED 40 October 02, 2018 3:02pm October 07, 2018 1:08am take 1-2 tabs every 6 hrs as needed for pain,stop all other narcs and tylenol acetaminophen 325 mg / oxyCODONE hydrochloride 5 mg oral tablet (5 sources) Opioid Agonist Start: 04-07-2018 End: 05-26-2018 Oxycodone-Acetaminophen 1 TABLET tablet Discontinued 1 - 2 {tbl} PO EVERY 4 HOURS NEEDED as needed for Pain 15 April 07, 2018 12:00am May 26, 2018 8:23am Start: 04-07-2018 End: 05-26-2018 take 1 tablet by mouth every four hours as needed Oxycodone-Acetaminophen Discontinued 1 - 2 TABLET PO EVERY 4 HOURS NEEDED 15 April 07, 2018 9:15am May 26, 2018 8:23am amoxicillin 875 mg / clavulanate 125 mg oral tablet (5 sources) Penicillin-class Antibacterial Start: 03-20-2022 End: 04-18-2022 Amoxicillin-Pot Clavulanate 875-125 mg tablet Discontinued 1 {tbl} PO TWICE A DAY March 20, 2022 12:00am April 18, 2022 10:53am Start: 03-20-2022 End: 04-18-2022 take 1 tablet by mouth twice daily Amoxicillin-Pot Clavulanate Discontinued 1 TABLET PO TWICE A DAY March 20, 2022 3:00pm April 18, 2022 10:53am atorvastatin 20 mg oral tablet (20 sources) HMG-CoA Reductase Inhibitor Start: 02-04-2018 End: 11-17-2024 take 1 tablet by mouth once daily Atorvastatin 20 mg tablet Discontinued 20 mg PO daily May 11, 2024 9:31am November 17, 2024 10:40am azithromycin 250 mg oral tablet (19 sources) Macrolide Antimicrobial Start: 11-08-2024 End: 01-05-2025 Azithromycin 250 mg tablet Discontinued 0 PO .COMPLEX November 08, 2024 1:00am January 05, 2025 3:47pm For 250 mg dose pack: take 500 mg today (day 1), then 250 mg for 4 days (days 2-5) PO Start: 09-02-2023 End: 12-13-2023 take 2-5 tablets by mouth once daily Azithromycin (Zithromax Z-Eyal) 250 mg tablet Discontinued 0 PO .COMPLEX 6 September 02, 2023 2:07pm October 22, 2023 9:35am take 500 mg today (day 1), then 250 mg for 4 days (days 2-5) PO Start: 01-08-2022 End: 04-18-2022 take 2-5 tablets by mouth once daily Azithromycin (Zithromax Z-Eyal) 250 mg tablet Discontinued 0 PO .COMPLEX 6 March 15, 2022 1:11pm April 18, 2022 10:53am take 500 mg today (day 1), then 250 mg for 4 days (days 2-5) PO Start: 07-15-2019 End: 10-27-2019 Azithromycin 250 mg tablet Discontinued 0 PO .COMPLEX 6 July 15, 2019 12:00am October 27, 2019 1:50pm Take two tablets by mouth on day one then one tablet by mouth on days 2-5 Start: 07-15-2019 End: 10-27-2019 Azithromycin Discontinued 0 PO .COMPLEX 6 July 15, 2019 9:54am October 27, 2019 1:50pm Take two tablets by mouth on day one then one tablet by mouth on days 2-5 benzonatate 100 mg oral capsule (17 sources) Non-narcotic Antitussive Start: 11-08-2024 End: 11-12-2024 take 1 capsule by mouth three times daily as needed for cough Benzonatate 100 mg capsule Discontinued 100 mg PO THREE TIMES A DAY as needed for PRN cough 10 4 November 08, 2024 1:00am November 11, 2024 1:00am November 12, 2024 1:12am Start: 01-08-2022 End: 04-18-2022 take 1 capsule by mouth three times daily as needed for cough Benzonatate 200 mg capsule Discontinued 200 mg PO THREE TIMES A DAY as needed for cough March 15, 2022 1:11pm April 18, 2022 10:53am Start: 07-15-2019 End: 10-27-2019 take 1 capsule by mouth three times daily as needed for cough Benzonatate (Tessalon Perles) 100 mg capsule Discontinued 100 mg PO THREE TIMES A DAY as needed for cough July 15, 2019 12:00am October 27, 2019 1:51pm dexlansoprazole 60 mg delayed release oral capsule (20 sources) Proton Pump Inhibitor Start: 02-04-2018 End: 01-07-2019 take 1 capsule by mouth once daily Dexlansoprazole 60 mg capsule,biphase delayed releas Discontinued 60 mg PO daily 90 January 05, 2019 2:18pm January 07, 2019 3:02pm Finger Splint (3 sources) Start: 03-19-2021 End: 04-27-2021 Finger Splint Discontinued 0 .ROUTE .MEDSUPPLY March 19, 2021 4:01pm April 27, 2021 11:00am As directed Start: 03-19-2021 End: 04-27-2021 Finger Splint Discontinued 0 .ROUTE .MEDSUPPLY March 19, 2021 12:00am April 27, 2021 11:00am As directed Finger Splint misc (2 sources) Start: 03-19-2021 End: 04-27-2021 Finger Splint misc Discontinued 0 .ROUTE .MEDSUPPLY March 19, 2021 12:00am April 27, 2021 11:00am As directed lisinopril 20 mg oral tablet (20 sources) Angiotensin Converting Enzyme Inhibitor Start: 02-04-2018 End: 11-17-2024 take 1 tablet by mouth once daily Lisinopril 20 mg tablet Discontinued 20 mg PO daily May 11, 2024 9:31am November 17, 2024 10:40am loratadine 10 mg oral tablet (5 sources) Start: 02-04-2018 End: 04-27-2021 take 1 tablet by mouth once daily Loratadine (Claritin) 10 mg tablet Discontinued 10 mg PO daily February 04, 2018 12:00am April 27, 2021 11:00am naproxen 500 mg oral tablet (5 sources) Nonsteroidal Anti-inflammatory Drug Start: 09-24-2018 End: 11-06-2018 take 1 tablet by mouth twice daily Naproxen 500 mg tablet Discontinued 500 mg PO TWICE A DAY 60 September 24, 2018 1:00am November 06, 2018 9:16am pantoprazole 40 mg delayed release oral tablet (20 sources) Proton Pump Inhibitor Start: 11-06-2018 End: 05-11-2024 take 1 tablet by mouth once daily Pantoprazole 40 mg tablet,delayed release (DR/EC) Discontinued 40 mg PO DAILY October 07, 2022 9:22am October 22, 2023 9:57am QUEtiapine 25 mg oral tablet (20 sources) Atypical Antipsychotic Start: 02-04-2018 End: 11-17-2024 take 1 tablet by mouth twice daily Quetiapine 25 mg tablet Discontinued 25 mg PO TWICE A DAY 180 November 15, 2024 11:10am November 17, 2024 10:40am traMADol hydrochloride 50 mg oral tablet (3 sources) Opioid Agonist Start: 08-27-2022 End: 10-23-2022 take 1 tablet by mouth every six hours as needed for pain Tramadol (Ultram) 50 mg tablet Discontinued 50 mg PO EVERY 6 HOURS as needed for pain August 27, 2022 12:00am October 23, 2022 11:27am Problems Active Problems Problem Classification Problem Date Documented Date Episodic/Chronic Abdominal hernia (5 sources) Left inguinal hernia ; Translations: [Unilateral inguinal hernia, without obstruction or gangrene, not specified as recurrent] 10-02-2018 Episodic Disorders of lipid metabolism (10 sources) Hyperlipidemia; Translations: [Hyperlipidemia, unspecified] Onset: 04-21-2024 Chronic Essential hypertension (10 sources) Hypertensive disorder; Translations: [Essential (primary) hypertension] Onset: 04-26-2024 Chronic Comment on above: Blood pressure is we ll controlled on the current medications. Fracture of upper limb (5 sources) Fracture of phalanx of finger; Translations: [Fracture of unspecified phalanx of unspecified finger, initial encounter for closed fracture] 04-27-2021 Episodic Mood disorders (10 sources) Bipolar I disorder; Translations: [Bipolar disorder, unspecified] Onset: 04-21-2024 Chronic Other and unspecified benign neoplasm (6 sources) Benign neoplasm of soft tissue; Translations: [Melanocytic nevi, unspecified] 04-26-2020 Episodic Other connective tissue disease (2 sources) Pain in right foot; Translations: [Pain in right foot] Onset: 10-14-2022 Episodic Other non-traumatic joint disorders (1 source) Effusion, left elbow; Translations: [Effusion, left elbow] Onset: 01-21-2025 Episodic Other non-traumatic joint disorders (4 sources) Swelling of upper limb; Translations: [Effusion, left elbow] 01-05-2025 Episodic Other screening for suspected conditions (not mental disorders or infectious disease) (5 sources) Patient encounter status; Translations: [Encounter for screening for malignant neoplasm of colon] 03-22-2021 Episodic Other skin disorders (2 sources) Polyp ; Translations: [Other specified disorders of the skin and subcutaneous tissue] 05-15-2023 Episodic Other skin disorders (2 sources) Inflamed seborrheic keratosis; Translations: [Inflamed seborrheic keratosis] 05-15-2023 Episodic Other skin disorders (2 sources) Facial swelling ; Translations: [Localized swelling, mass and lump, head] 06-23-2024 Episodic Other upper respiratory disease (5 sources) Seasonal allergic rhinitis; Translations: [Other seasonal allergic rhinitis] 10-02-2018 Chronic Other upper respiratory infections (5 sources) Viral upper respiratory tract infection; Translations: [Acute upper respiratory infection, unspecified] 11-08-2024 Episodic Residual codes; unclassified (3 sources) History of operative procedure on foot; Translations: [Other specified postprocedural states] 10-02-2018 Episodic Comment on above: left foot was ran ov er by a fork lift, 1998 Unclassified (6 sources) history of leg surgery 10-25-2020 Comment on above: injury that resulted in severe injury to right knee and rods and screw were placed. 2013 Past or Other Problems Problem Classification Problem Date Documented Da te Episodic/Chronic Other skin disorders (1 source) Localized swelling, mass and lump, head; Translations: [Localized swelling, mass and lump, head] Onset: 06-23-2024 Episodic Other skin disorders (1 source) Inflamed seborrheic keratosis; Translations: [Inflamed seborrheic keratosis] Onset: 06-16-2024 Episodic Unclassified (3 sources) h/o right patella ORIF 06-10-2022 Comment on above: 10/02/18 Results Test Name Value Interpretation Reference Range Facility Elbow min 3 Viewson 01-07-20 25 Elbow min 3 Views [facility] Services [address] [place] [address] Elbow min 3 Views MR#: [id number] Acct: [id number] Name: FRANKLYN JEAN BAPTISTE Rep #: [id number] : 1960 M 64 From: Brooks Quiñones MD PCP: Dr. Vincenzo Ibarra, DO Status: REG CLI Study: Elbow min 3 Views Date of Exam: 01/07/25 Exam# [id number] Ordering Dr: Vincenzo Ibarra DO PROCEDURE: ELBOW MIN 3 VIEWS REASON FOR EXAM: Swelling of elbow TECHNIQUE: 3 view(s) of each elbow COMPARISON: None. FINDINGS: LEFT ELBOW: No visible fracture. No suspicious bone lesion. Normal alignment. No effusion. Soft tissues are unremarkable. RAD/Elbow min 3 Views IMPRESSION: No acute osseous or significant abnormality in the left elbow Reading Location: [facility] CC: Dr. Vincenzo Ibarra, DO Developer [employer] Upholstering: Signed [facility] Internal Medicine Office Vis iton 01-05-2025 Internal Medicine Office Visit [facility] [place] [address] [place] [address] OFFICE VISIT Date of Service: 01/05/25 MR#: [id number] Acct: [id number] Name: FRANKLYN JEAN BAPTISTE Rep #: [id number] : 1960 Provider: Dr. Vincenzo ayoub, DO Age/Sex: 64/M Location: [facility] Status: Signed Intake Vital Signs 11/08/24 10:58 01/05/25 14:49 Height 5 ft 10 in 5 ft 10 in Weight: 191 lb 194 lb BMI 27.3 27.8 BP 112/68 130/80 H Blood Pressure Location Lt brachial Rt brachial Position Sitting Sitting Respiration 12 16 Pulse 105 H 84 Pulse Source NIBP Monitor Temp 98.2 F 98.4 F Temp Source Oral Temporal Pulse Oximetry (%) 97 99 Oxygen Delivery Method room air room air Intake Visit Reasons: LFT ELBOW ISSUES Chief Complaint: LEFT ELBOW ISSUES Is patient in pain?: Yes (LEFT ELBOW ) Pain scale (1-10): 2 Allergies No Known Allergies Allergy (Verified 01/05/25 14:46) Medications ???Medication ???Instructions ???Recorded ???Confirmed ???Type multivitamin 1 tab PO QAM 02/04/18 01/05/25 His tory acetaminophen 500 mg tablet 500 mg PO Q6H PRN 10/27/19 5 History (Tylenol Extra Strength) aspirin 81 mg chewable tablet 81 mg PO DAILY #90 tabs 05/11/24 0 01/05/25 Rx pantoprazole 40 mg tablet,delayed 40 mg PO DAILY #90 tabs 05/11/24 01/05/25 Rx release atorvastatin 20 mg tablet 20 mg PO QDAY CHOLESTEROL #90 tabs 11/17/24 01/05/25 Rx lisinopril 20 mg tablet 20 mg PO QDAY BP #90 tabs 11/17/24 01/05/25 Rx quetiapine 25 mg tablet 25 mg PO BID #180 TABLETS 11/17/24 01/05/25 Rx PFSH Medical History Viral URI with cough Bipolar 1 disorder Seasonal allergies Hyperlipemia Hypertension Surgical History h/o right patella ORIF Hx of left inguinal hernia repair Status post left foot surgery history of leg surgery Family History Father Colon cancer Mother Cancer liver Uncle Colon cancer Social History Smoking Status: Former smoker how long ago did patient quit smokin alcohol intake: former year quit: 2003 substance use type: does not use what type of physical activity do you participate in: swimming and weight training frequency: 3-4 times per week HPI HPI Chief Complaint: LEFT ELBOW ISSUES Details: FRANKLYN JEAN BAPTISTE, is a 64 M who presents to the office today for a tender lump on the lateral aspect of his left elbow. He notices this over the last couple of weeks and it is tender, however if he uses [id number] Voltaren gel it seems to take some of the tenderness away. ROS Const Constitutional: No body ache, chills, excessive sweating, fatigue, fever(s), frequent falls, headache(s), snoring, weakness, sleep problems or change in appetite Eyes Eyes: No blurry vision, change in vision or Light sensitivity ENT ENT: No abnormal hearing, ear or mastoid pain, tinnitus, nasal congestion, nasal discharge, headache(s), neck pain or sore throat Resp Respiratory: No cough, shortness of breath, snoring or wheezing Cardio Cardiology: No chest pain at rest, chest pain with exertion, excessive sweating, shortness of breath, dyspnea on exertion, lightheadedness, orthopnea or palpitations Gastro GI: No abdominal pain, change in bowel habits, constipation, cramping, diarrhea or nausea/dyspepsia Genitourinary Male: No burning urination, painful urination, urinary incontinence or urinary frequency Musc Musculoskeletal: Positive for other (FIRM BUMP ON LEFT ELBOW X6-8 WEEKS; DENIES TRAUMA/FALLS); No abnormal gait, joint pain, back pain, limited range of motion, muscle weakness, neck pain or numbness Skin Skin: No dry skin, redness, lesions, itchy eyes, rash or wounds Neuro Neurology: No abnormal gait, abnormal hearing, weakness, frequent falls, headache(s), memory loss or numbness Psych Psychiatric: No anxiety, No change in appetite, No depression, No memory loss, No panic attacks and No Thoughts of harming yourself/Others Endo Endocrine: No cold intolerance, excessive sweating, fatigue, flushing, heat intolerance, increased thirst/drinking or increased hunger Aller/Imm Allergy/Immunologic: No itchy eyes, seasonal allergy symptoms, hives or wheezing Exam Const General: cooperative, healthy appearing and no acute distress Extrem Other: Patient has a very small palpable bursa over the aspect of the prominence of the lateral part of his elbow. I think the bony protuberance is about the same size [id number] always got is a little bit of a cystic structure that certainly under 1 cm by few millimeters thick. Coding Level of Care Code Off vis,est,level 3 Diagnoses Swelling of left elbow M25.422 (more content not included)... [facility] Urgent Care Visit Reporton 1 Urgent Care Visit Report [facility] [address], [address] [place] [address] OFFICE VISIT Date of Service: 11/08/24 MR#: [id number] Acct: [id number] Name: FRANKLYN JEAN BAPTISTE Rep #: [id number] : 1960 Provider: JENNIFER Sheppard Age/Sex: 64/M Location: [facility] Status: Signed Intake Vital Signs 10/19/24 08:51 11/08/24 10:58 Height 5 ft 10 in 5 ft 10 in Weight: 197 lb 191 lb BMI 28.3 27.3 BP 128/82 H 112/68 Blood Pressure Location Lt brachial Lt brachial Position Sitting Sitting Respiration 16 12 Pulse 102 H 105 H Pulse Source Monitor NIBP Temp 99 F 98.2 F Temp Source Temporal Oral Pulse Oximetry (%) 97 97 Oxygen Delivery Method room air room air Intake Visit Reasons: CHEST CASSIDY/BA/FEVER/SINUS CMP Chief Complaint: chest congestion/ BA/ Sinus congestion 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 Is patient in pain?: No Allergies No Known Allergies Allergy (Verified 11/08/24 10:59) Medications ???Medication ???Instructions ???Recorded ???Confirmed ???Type multivitamin 1 tab PO QAM 02/04/18 11/08/24 History acetaminophen 500 mg tablet 500 mg PO Q6H PRN 10/27/19 11/08/24 History (Tylenol Extra Strength) aspirin 81 mg chewable tablet 81 mg PO DAILY #90 tabs 05/11/24 11/08/24 Rx atorvastatin 20 mg tablet 20 mg PO QDAY CHOLESTEROL #90 tabs 05/11/24 11/08/24 Rx lisinopril 20 mg tablet 20 mg PO QDAY BP #90 tabs 05/11/24 11/08/24 Rx pantoprazole 40 mg tablet,delayed 40 mg PO DAILY #90 tabs 05/11/24 11/08/24 Rx release quetiapine 25 mg tablet 25 mg PO BID Bipolar #180 tabs 05/11/24 11/08/24 Rx azithromycin 250 mg tablet See Rx Instructions PO .COMPLEX #6 11/08/24 11/08/24 Rx tabs benzonatate 100 mg capsule 100 mg PO TID PRN PRN cough 4 days 11/08/24 11/08/24 Rx #10 caps Have you fallen in the past year?: No Nurse's Note: patient here for cough, chest and sinus congestion, body aches x1 day PFSH Medical History (Updated 11/08/24 @ 11:10 by JENNIFER Jamison) Viral URI with cough Bipolar 1 disorder Seasonal allergies Hyperlipemia Hypertension Surgical History h/o right patella ORIF Hx of left inguinal hernia repair Status post left foot surgery history of leg surgery Family History Father Colon cancer Mother Cancer liver Uncle Colon cancer Social History Smoking Status: Former smoker how long ago did patient quit smokin alcohol intake: former year quit: 2003 substance use type: does not use what type of physical activity do you participate in: swimming and weight training frequency: 3-4 times per week HPI HPI Chief Complaint: chest congestion/ BA/ Sinus congestion Details: FRANKLYN JEAN BAPTISTE, is a 64 M who presents to the office today for HPI: Patient presents today for concerns of cough and congestion along with sinus pressure that started yesterday. He notes that when he goes through times of temperatures variations he often gets this infection and requires azithromycin and Tessalon Perles. ROS: As noted in HPI Physical Exam: VITALS: Reviewed. GEN: Healthy appearing, well-developed, NAD. PSYCH: AOx3. Normal memory, mood, and affect. HEENT -Eyes: -No discharge or redness; -Ears: -Mouth and throat: Moist mucous membranes. NECK: CV: Regular rate and rhythm LUNGS: Normal respiratory effort. Lungs clear bilaterally. SKIN: Warm, well perfused. No skin rashes or abnormal lesions noted. MSK: Normal gait. NEURO: Ambulating with no limitations. Normal muscle strength and tone. No focal deficits. Coding Level of Care Code Off vis,est,level 3 Diagnoses Viral URI with cough J06.9 Assessment and Plan Assessment and Plan (1) Viral URI with cough: Status: Acute Plan: Discussed with patient that I felt that his symptoms are most likely viral in origin and no antibiotics were necessary. Patient adamant that he does need antibiotics and so he was prescribed Z-Eyal and Tessalon Perles. Patient will stop taking his bipolar medication while taking the azithromycin. He will otherwise follow-up with PCP. Medications: New benzonatate 100 mg PO TID PRN 10 caps 0RF PRN cough 4 days azithromycin For 250 mg dose pack: take 500 mg today (day 1), then 250 mg for 4 days (days 2-5) PO 6 tabs 0RF Clinical Quality Measures Falls Risk Screening/Assistive Devices Have you fallen in the past year?: No 11/08/24 1111 Date Franck Sheppard PRINT PRODUCTION COORDINATOR-C Cosigner Signature: Date (if applicable) CC: [facility] Internal Medicine Office Vis [email or web address] 10-19-2024 Internal Medicine Office Visit [facility] [address] [place] [address] [place] [address] OFFICE VISIT Date of Service: 10/19/24 MR#: [id number] Acct: [id number] Name: FRANKLYN JEAN BAPTISTE Rep #: [id number] : 1960 Provider: Dr. Vincenzo ayoub, DO Age/Sex: 64/M Location: [facility] Status: Signed Intake Vital Signs 04/21/24 08:29 06/23/24 08:01 10/19/24 08:51 Height 5 ft 10 in 5 ft 10 in 5 ft 10 in Weight: 197 lb BMI 28.3 BP 128/82 H Blood Pressure Location Lt brachial Position Sitting Respiration 16 Pulse 102 H Pulse Source Monitor Temp 99 F Temp Source Temporal Pulse Oximetry (%) 97 Oxygen Delivery Method room air Intake Visit Reasons: 6 m fu 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 Is patient in pain?: No Allergies No Known Allergies Allergy (Verified 10/19/24 08:46) Medications ???Medication ???Instructions ???Recorded ???Confirmed ???Type multivitamin 1 tab PO QAM 02/04/18 10/19/24 History acetaminophen 500 mg tablet 500 mg PO Q6H PRN 10/27/19 10/19/24 History (Tylenol Extra Strength) aspirin 81 mg chewable tablet 81 mg PO DAILY #90 tabs 05/11/24 10/19/24 Rx atorvastatin 20 mg tablet 20 mg PO QDAY CHOLESTEROL #90 tabs 05/11/24 10/19/24 Rx lisinopril 20 mg tablet 20 mg PO QDAY BP #90 tabs 05/11/24 10/19/24 Rx pantoprazole 40 mg tablet,delayed 40 mg PO DAILY #90 tabs 05/11/24 10/19/24 Rx release quetiapine 25 mg tablet 25 mg PO BID Bipolar #180 tabs 05/11/24 10/19/24 Rx PFSH Medical History Bipolar 1 disorder Seasonal allergies Hyperlipemia Hypertension Surgical History h/o right patella ORIF Hx of left inguinal hernia repair Status post left foot surgery history of leg surgery Family History Father Colon cancer Mother Cancer liver Uncle Colon cancer Social History Smoking Status: Former smoker how long ago did patient quit smokin alcohol intake: former year quit: 2003 substance use type: does not use what type of physical activity do you participate in: swimming and weight training frequency: 3-4 times per week HPI HPI Details: FRANKLYN JEAN BAPTISTE, is a 64 M who presents to the office today for ROS Const Constitutional: No body ache, chills, excessive sweating, fatigue, fever(s), frequent falls, headache(s), snoring, weakness, sleep problems or change in appetite Eyes Eyes: No blurry vision, change in vision, eye pain or Light sensitivity ENT ENT: No abnormal hearing, ear or mastoid pain, tinnitus, nasal congestion, headache(s), neck pain or sore throat Resp Respiratory: No cough, shortness of breath, snoring or wheezing Cardio Cardiology: No chest pain at rest, chest pain with exertion, excessive sweating, shortness of breath, dyspnea on exertion, lightheadedness, orthopnea or palpitations Gastro GI: No abdominal pain, change in bowel habits, constipation, cramping, diarrhea, nausea/dyspepsia or vomiting Genitourinary Male: No burning urination, painful urination, urinary incontinence or urinary frequency Musc Musculoskeletal: No abnormal gait, joint pain, back pain, limited range of motion, neck pain or numbness Skin Skin: No dry skin, redness, lesions, itchy eyes, rash or wounds Neuro Neurology: No abnormal gait, abnormal hearing, weakness, frequent falls, headache(s), memory loss or numbness Psych Psychiatric: No anxiety, No change in appetite, No depression, No memory loss and No Thoughts of harming yourself/Others Endo Endocrine: No cold intolerance, excessive sweating, fatigue, flushing, heat intolerance, increased thirst/drinking or increased hunger Aller/Imm Allergy/Immunologic: No itchy eyes, seasonal allergy symptoms, hives or wheezing Zay/Lymp Hematologic/Lymphati c: No easy bleeding, easy bruising, enlarged lymph nodes or other Exam Const General: cooperative, healthy appearing and comfortable Nutritional Appearance: average body habitus Orientation: alert and oriented x3 Limitations: mental status not altered HENMT Head: normal to inspection, normocephalic and atraumatic Nose: external nose normal, mucous membranes and turbinates abnormal boggy and erythematous and nasal polyp on the left Eyes General: appearance normal, both eyes and all related structures Pupils: PERRL Neck Neck: normal visual inspection and full ROM Chest Chest palpation inspection: normal inspection of the chest Resp Effort Inspection: normal respiratory effort, able to speak in complete sentences, normal respiratory pattern, no audible wheezes and no cough Cardio Rate: regular rate Rhythm: regular rhythm Musc Musculosk (more content not included)... Normal [facility] Internal Medicine Office Vis juan pablo 06-23-2024 Internal Medicine Office Visit [facility] [place] [address] [place] [address] OFFICE VISIT Date of Service: 06/23/24 MR#: [id number] Acct: [id number] Name: FRANKLYN JEAN BAPTISTE Rep #: [id number] : 1960 Provider: MARY LOU Vivas Age/Sex: 63/M Location: [facility] Status: Signed Intake Vital Signs 06/16/24 11:27 06/23/24 08:01 Height 5 ft 10 in 5 ft 10 in Weight: 190 lb 190 lb BMI 27.2 27.2 BP 122/82 H 118/70 Blood Pressure Location Lt brachial Lt brachial Position Sitting Sitting Respiration 18 16 Pulse 82 55 L Pulse Source Monitor Monitor Temp 98.4 F 97.5 F L Temp Source Temporal Temporal Pulse Oximetry (%) 98 98 Oxygen Delivery Method room air room air Intake Visit Reasons: ACUTE LIP AND CHEEK SWOLLEN Chief Complaint: lip and cheek swelling 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 Accompanied by: Self Is patient in pain?: No Allergies No Known Allergies Allergy (Verified 06/23/24 12:05) Medications ???Medication ???Instructions ???Recorded ???Confirmed ???Type multivitamin 1 tab PO QAM 02/04/18 06/23/24 History acetaminophen 500 mg tablet 500 mg PO Q6H PRN 10/27/19 06/23/24 History (Tylenol Extra Strength) aspirin 81 mg chewable tablet 81 mg PO DAILY #90 tabs 05/11/24 06/23/24 Rx atorvastatin 20 mg tablet 20 mg PO QDAY CHOLESTEROL #90 tabs 05/11/24 06/23/24 Rx lisinopril 20 mg tablet 20 mg PO QDAY BP #90 tabs 05/11/24 06/23/24 Rx pantoprazole 40 mg tablet,delayed 40 mg PO DAILY #90 tabs 05/11/24 06/23/24 Rx release quetiapine 25 mg tablet 25 mg PO BID Bipolar #180 tabs 05/11/24 06/23/24 Rx PFSH Medical History Bipolar 1 disorder Seasonal allergies Hyperlipemia Hypertension Surgical History h/o right patella ORIF Hx of left inguinal hernia repair Status post left foot surgery history of leg surgery Family History Father Colon cancer Mother Cancer liver Uncle Colon cancer Social History Smoking Status: Former smoker how long ago did patient quit smokin alcohol intake: former year quit: 2003 substance use type: does not use what type of physical activity do you participate in: swimming and weight training frequency: 3-4 times per week HPI HPI Chief Complaint: lip and cheek swelling Details: FRANKLYN JEAN BAPTISTE, is a 63 M who presents to the office today for check of his face after he opened his car door and somehow that caught him in left side of his face. He states that he doesn't know what he did but he hit it pretty hard. He states that he had some swelling in the face and lip at the same time this has improved a lot but he thought he would just have this checked. He states that it didn't knock any teeth out or loosened any teeth and has not had any difficulties chewing, talking, or any other activities. Again, he just thought he would have it checked just in case. He iced a little bit yesterday stating a couple times for 20-30 minutes. He already takes 2 tylenol BID. ROS Const Constitutional: No body ache, chills, excessive sweating, fatigue, fever(s), frequent falls, headache(s), snoring, weakness or change in appetite Eyes Eyes: No blurry vision, change in vision, eye pain or Light sensitivity ENT ENT: No abnormal hearing, ear or mastoid pain, tinnitus, nasal congestion, headache(s), neck pain or sore throat Resp Respiratory: No cough, shortness of breath, snoring or wheezing Cardio Cardiology: No chest pain at rest, chest pain with exertion, excessive sweating, dyspnea on exertion, lightheadedness, orthopnea or palpitations Gastro GI: No abdominal pain, change in bowel habits, constipation, cramping, diarrhea, nausea/dyspepsia or vomiting Genitourinary Male: No burning urination, painful urination, urinary incontinence or urinary frequency Musc Musculoskeletal: No abnormal gait, joint pain, back pain, limited range of motion, muscle weakness, neck pain or numbness Skin Skin: No dry skin, redness, lesions, itchy eyes, rash or wounds Neuro Neurology: No abnormal gait, abnormal hearing, weakness, frequent falls, headache(s), memory loss or numbness Psych Psychiatric: No anxiety, No change in appetite, No depression, No memory loss and No Thoughts of harming yourself/Others Endo Endocrine: No cold intolerance, excessive sweating, fatigue, flushing, heat intolerance, increased thirst/drinking or increased hunger Aller/Imm Allergy/Immunologic: No itchy eyes, seasonal allergy symptoms, hives or wheezing Zay/Lymp Hematologic/Lymphati c: No easy bleeding or easy bruising Exam Const General: cooperative, healthy appearing, comfortable, no acute distress, well developed and we (more content not included)... Normal [facility] Internal Medicine Office Vis juan pablo 06-16-2024 Internal Medicine Office Visit [facility] [address] [place] [address] [place] [address] OFFICE VISIT Date of Service: 06/16/24 MR#: [id number] Acct: [id number] Name: FRANKLYN JEAN BAPTISTE Rep #: [id number] : 1960 Provider: Dr. 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 Is patient in pain?: No Allergies No Known Allergies Allergy (Verified 06/16/24 11:22) Medications ???Medication ???Instructions ???Recorded ???Confirmed ???Type multivitamin 1 tab PO QAM 02/04/18 06/16/24 History acetaminophen 500 mg tablet 500 mg PO Q6H PRN 10/27/19 06/16/24 History (Tylenol Extra Strength) aspirin 81 mg chewable tablet 81 mg PO DAILY #90 tabs 05/11/24 06/16/24 Rx atorvastatin 20 mg tablet 20 mg PO QDAY CHOLESTEROL #90 tabs 05/11/24 06/16/24 Rx lisinopril 20 mg tablet 20 mg PO QDAY BP #90 tabs 05/11/24 06/16/24 Rx pantoprazole 40 mg tablet,delayed 40 mg PO DAILY #90 tabs 05/11/24 06/16/24 Rx release quetiapine 25 mg tablet 25 mg PO BID Bipolar #180 tabs 05/11/24 06/16/24 Rx Nurse's Note: Here to get a mole on L arm frozen, and 2 on left side of face. Denies crusting, pain, or any changes. PFSH Medical History Bipolar 1 disorder Seasonal allergies Hyperlipemia Hypertension Surgical History h/o right patella ORIF Hx of left inguinal hernia repair Status post left foot surgery history of leg surgery Family History Father Colon cancer Mother Cancer liver Uncle Colon cancer Social History Smoking Status: Former smoker how long ago did patient quit smokin alcohol intake: former year quit: 2003 substance use type: does not use what type of physical activity do you participate in: swimming and weight training frequency: 3-4 times per week HPI HPI Details: FRANKLYN JEAN BAPTISTE, is a 63 M who presents to the office today for ROS Const Constitutional: No body ache, chills, excessive sweating, fatigue, fever(s), frequent falls, headache(s), snoring, weakness, sleep problems or change in appetite Eyes Eyes: No blurry vision, change in vision, eye pain or Light sensitivity ENT ENT: No abnormal hearing, ear or mastoid pain, tinnitus, nasal congestion, headache(s), neck pain or sore throat Resp Respiratory: No cough, shortness of breath, snoring or wheezing Cardio Cardiology: No chest pain at rest, chest pain with exertion, excessive sweating, shortness of breath, dyspnea on exertion, lightheadedness, orthopnea or palpitations Gastro GI: No abdominal pain, change in bowel habits, constipation, cramping, diarrhea, nausea/dyspepsia or vomiting Genitourinary Male: No burning urination, painful urination, urinary incontinence or urinary frequency Musc Musculoskeletal: No abnormal gait, joint pain, back pain, limited range of motion, neck pain or numbness Skin Skin: No dry skin, redness, lesions, itchy eyes, rash or wounds Neuro Neurology: No abnormal gait, abnormal hearing, weakness, frequent falls, headache(s), memory loss or numbness Psych Psychiatric: No anxiety, No change in appetite, No depression, No memory loss and No Thoughts of harming yourself/Others Endo Endocrine: No cold intolerance, excessive sweating, fatigue, flushing, heat intolerance, increased thirst/drinking or increased hunger Aller/Imm Allergy/Immunologic: No itchy eyes, seasonal allergy symptoms, hives or wheezing Zay/Lymp Hematologic/Lymphati c: No easy bleeding, easy bruising, enlarged lymph nodes or other Exam Skin Lesions: lesion noted (All three lesions are seborrheic Keratois.) Neuro General: patient alert Extrem General: normal to inspection Office Procedures Liquid Nitrogen Cryotherapy Informed consent given: Yes Consent signed: No Number of freeze-thaw cycles: 2 Duration of liquid nitrogen freeze-thaw cycles (sec): 16-20 Patient tolerated procedure: with discomfort Complications: No Coding Level of Care Code Attention Pipe Stem Repairer Diagnoses Inflamed seborrheic keratosis L82.0 Assessment and Plan Assessment and Plan (1) Inflamed seborrheic keratosis: Status: Acute Plan: Pt. has (more content not included)... Normal [facility] LDL, Directon 05-07-2024 LDL, DIRECT Normal [facility] Comment on above: Result Comment: TEST RESULTS LIMITS LDL Chol. (Direct) 117 High mg/dL 0-99 TESTING PERFORMED AT [facility]. ORIGINAL REPORT ON FILE IN LAB CONTAINS ADDITIONAL TEST SITE INFORMATION. Performed By: #### L 8020.4490, L500.4050 #### [facility] [address] [place], [place], [id number] Comprehensive Metabolic Prof ilon 04-21-2024 Albumin [Mass/Vol] 4.3 g/dL Normal 3.2-5.0 [facility] Comment on above: Performed By: #### L 3300.4490, L500.4050 #### [facility] [address] [place], [place], [id number] Albumin/Globulin [Mass ratio] 1.3 {ratio} Normal 0.9-2.4 [facility] Comment on above: Performed By: #### L 3300.4490, L500.4050 #### [facility] [address] [place], [address] ALK P 83 U/L Normal 45-117 [facility] Comment on above: Performed By: #### L 3300.4490, L500.4050 #### [facility] [address] [place], [address] ALT [Catalytic activity/Vol] 24 U/L Normal 16-61 [facility] Comment on above: Performed By: #### L 3300.4490, [id number] #### [facility] [address] [place], [address] AST [Catalytic activity/Vol] 19 U/L Normal 15-37 [facility] Comment on above: Performed By: #### L 3300.4490, L500.4050 #### [facility] [address] [place], [address] Bilirubin [Mass/Vol] 0.60 mg/dL Normal 0.20-1.00 [facility] Comment on above: Result Comment: For patients on eltrombopag therapy, use of Dimension [place] TBIL is not recommended. Performed By: #### L 3300.4490, L500.4050 #### [facility] [address] [place], [address] BUN/CRE 15.2 RATIO Normal 10-20 [facility] Comment on above: Performed By: #### L 3300.4490, [id number] #### [facility] [address] [place], [address] CA,Total 10.0 mg/dL Normal 8.5-10.1 [facility] Comment on above: Performed By: #### L 3300.4490, [id number] #### [facility] [address] [place], [address] Chloride [Moles/Vol] 108 mmol/L High 98-107 [facility] Comment on above: Performed By: #### L 3300.4490, [id number] #### [facility] [address] [place], [address] CO2 [Moles/Vol] 25.0 mmol/L Normal 21.0-32.0 [facility] Comment on above: Performed By: #### L 3300.4490, L500.4050 #### [facility] [address] [place], [address] Creatinine [Mass/Vol] 1.05 mg/dL Normal 0.70-1.30 [facility] Comment on above: Result Comment: The validity of the calculated GFR GFRAA in patients over 70 years has not been determined. Clinical correlation is essential. Performed By: #### L 3300.4490, L500.4050 #### [facility] [address] [place], [address] EST GFR - AA 92 mL/min Normal >60 [facility] Comment on above: Result Comment: Afri can Serbian GFR Calc Performed By: #### L 3300.4490, L500.4050 #### [facility] [address] [place], [address] GAP 6 Normal 5-15 [facility] Comment on above: Performed By: #### L 3300.4490, [id number] #### [facility] [address] [place], [address] GFR/1.73 sq M.predicted among non-blacks MDRD (S/P/Bld) [Vol rate/Area] 76 mL/min/{1.73_m2} Normal >60 [facility] Comment on above: Result Comment: Non- GFR Calc Performed By: #### L 3300.4490, L500.4050 #### [facility] [address] [place], [address] Globulin (S) [Mass/Vol] 3.2 g/dL Normal 2.2-4.2 [facility] Comment on above: Performed By: #### L 3300.4490, L500.4050 #### [facility] [address] [place], [address] Glucose [Mass/Vol] 106 mg/dL Normal 74-106 [facility] Comment on above: Result Comment: Fast ing Glucose result from 100 to 125 mg/dL suggests IMPAIRED HOMEOSTASIS per A.D.A. criteria. Performed By: #### L 3300.4490, L500.4050 #### [facility] [address] [place], [address] Potassium [Moles/Vol] 4.9 mmol/L Normal 3.5-5.1 [facility] Comment on above: Performed By: #### L 3300.4490, [id number] #### [facility] [address] [place], [address] Sodium [Moles/Vol] 139 mmol/L Normal 136-145 [facility] Comment on above: Performed By: #### L 3300.4490, L500.4050 #### [facility] [address] [place], [address] T PROT 7.5 g/dL Normal 6.4-8.2 [facility] Comment on above: Performed By: #### L 3300.4490, [id number] #### [facility] [address] [place], [address] Urea nitrogen [Mass/Vol] 16 mg/dL Normal 7-18 [facility] Comment on above: Performed By: #### L 3300.4490, [id number] #### [facility] [address] [place], [address] Internal Medicine Office Vis juan pablo 04-21-2024 Internal Medicine Office Visit [facility] [address] [place], [place] [address] OFFICE VISIT Date of Service: 04/21/24 MR#: [id number] Acct: [id number] Name: FRANKLYN JEAN BAPTISTE Rep #: [id number] : 1960 Provider: Dr. Vincenzo Gregory Br own, DO Age/Sex: 63/M Location[place] [facility] Status: Signed Intake Vital Signs 10/22/23 08:36 04/21/24 08:29 Height 5 ft 10 in 5 ft 10 in Weight: 196 lb 192 lb BMI 28.1 27.5 BP 124/80 H 118/74 Blood Pressure Location Lt brachial Lt brachial Position Sitting Sitting Respiration 16 17 Pulse 80 78 Pulse Source Monitor Monitor Temp 99.7 F H 97.6 F L Temp Source Temporal Temporal Pulse Oximetry (%) 98 97 Oxygen Delivery Method room air room air Intake Visit Reasons: 6 m fu Chief Complaint: 6 M FU Is patient in pain?: No Allergies No Known Allergies Allergy (Verified 04/21/24 08:28) Medications ???Medication ???Instructions ???Recorded ???Confirmed ???Type aspirin 81 mg chewable tablet 81 mg PO DAILY 02/04/18 04/21/24 History multivitamin 1 tab PO QAM 02/04/18 04/21/24 History acetaminophen 500 mg tablet 500 mg PO Q6H PRN 10/27/19 04/21/24 History (Tylenol Extra Strength) atorvastatin 20 mg tablet 20 mg PO QDAY CHOLESTEROL #90 tabs 10/22/23 04/21/24 Rx lisinopril 20 mg tablet 20 mg PO QDAY BP #90 tabs 10/22/23 04/21/24 Rx pantoprazole 40 mg tablet,delayed 40 mg PO DAILY #90 tabs 10/22/23 04/21/24 Rx release quetiapine 25 mg tablet 25 mg PO BID Bipolar #180 tabs 10/22/23 04/21/24 Rx PFSH Medical History Bipolar 1 disorder Seasonal allergies Hyperlipemia Hypertension Surgical History h/o right patella ORIF Hx of left inguinal hernia repair Status post left foot surgery history of leg surgery Family History Father Colon cancer Mother Cancer liver Uncle Colon cancer Social History Smoking Status: Former smoker how long ago did patient quit smokin alcohol intake: former year quit: 2003 substance use type: does not use what type of physical activity do you participate in: swimming and weight training frequency: 3-4 times per week HPI HPI Chief Complaint: 6 M FU Details: FRANKLYN JEAN BAPTISTE, is a 63 M who presents to the office today for a 6-month follow-up exam, blood work, medication refills. Patient is doing well and his only complaint is the stiffness he has in his right leg from his injury of several years ago. ROS Const Constitutional: No body ache, chills, excessive sweating, fatigue, fever(s), frequent falls, headache(s), snoring, weight change, sleep problems, abnormal sleep pattern or change in appetite Eyes Eyes: No blurry vision, change in vision, eye pain or Light sensitivity ENT ENT: No abnormal hearing, ear or mastoid pain, tinnitus, nasal congestion, headache(s), neck pain or sore throat Resp Respiratory: No cough, shortness of breath, snoring or wheezing Cardio Cardiology: No chest pain at rest, chest pain with exertion, excessive sweating, shortness of breath, dyspnea on exertion, lightheadedness, orthopnea or palpitations Gastro GI: No abdominal pain, change in bowel habits, constipation, cramping, diarrhea, nausea/dyspepsia or vomiting Genitourinary Male: No burning urination, painful urination, urinary incontinence or urinary frequency Musc Musculoskeletal: No abnormal gait, joint pain, back pain, limited range of motion, neck pain, numbness or tingling Skin Skin: No dry skin, redness, lesions, itchy eyes, rash or wounds Neuro Neurology: No abnormal gait, abnormal hearing, frequent falls, headache(s), memory loss, numbness or tingling Psych Psychiatric: No abnormal sleep pattern, No anxiety, No change in appetite, No irritability, No memory loss and No Thoughts of harming yourself/Others Endo Endocrine: No cold intolerance, excessive sweating, fatigue, flushing, heat intolerance, increased thirst/drinking, increased hunger or weight change Aller/Imm Allergy/Immunologic: No itchy eyes, seasonal allergy symptoms, hives or wheezing Zay/Lymp Hematologic/Lymphati c: No easy bleeding, easy bruising, enlarged lymph nodes or other Exam Const General: cooperative, healthy appearing and comfortable Nutritional Appearance: average body habitus Orientation: alert and oriented x3 Limitations: mental status not altered [facility] Head: normal to inspection, normocephalic and atraumatic Eyes General: appearance normal, both eyes and all related structures Pupils: PERRL Neck Neck: normal visual inspection and full ROM Chest Chest palpation inspection: normal inspection of the chest Resp Effort Inspection: normal re (more content not included)... Normal [facility] Basophil percentageOrdered B y: Dr. Ibarra on 04-21-2023 Bilirubin [Mass/Vol] 0.30 mg/dL 0.20-1.00 [facility] Comment on above: For patients on eltr ombopag therapy, use of Dimension [place] TBIL is not recommended. Chloride [Moles/Vol] 109 mmol/L 98-107 [facility] Cholesterol [Mass/Vol] 178 mg/dL <200 [facility] Comment on above: <200 mg/dL Desirable 200-240 mg/dL Borderline >240 mg/dL High Risk Glucose [Mass/Vol] 148 mg/dL 74-106 [facility] Comment on above: Fasting Glucose resu lt greater than or equal to 126 mg/dL suggests DIABETES MELLITUS per A.D.A. criteria. Potassium [Moles/Vol] 4.5 mmol/L 3.5-5.1 [facility] Protein [Mass/Vol] 7.7 g/dL 6.4-8.2 [facility] Sodium [Moles/Vol] 139 mmol/L 136-145 [facility] Triglyceride [Mass/Vol] 151 mg/dL <199 [facility] Comment on above: The drugs N-Acetylcy steine and Metamizole may falsely depress this assay.Serum Triglycerides Reference Interval Normal <150 mg/dL Borderline high 150 - 199 mg/dL High 200 - 499 mg/dL Very High > or = 500 mg/dL Laboratory - Chemistry and C hemistry - challengeOrdered By: Dr. Ibarra on 04-21-2023 ALP [Catalytic activity/Vol] 83 U/L 45-117 [facility] ALT [Catalytic activity/Vol] 34 U/L 16-61 [facility] CO2 [Moles/Vol] 25.0 mmol/L 21.0-32.0 [facility] Globulin (S) [Mass/Vol] 3.7 g/dL 2.2-4.2 [facility] Urea nitrogen/Creatinine [Mass ratio] 18.6 mg/mg 10-20 [facility] No Panel InformationOrdered By: Dr. Ibarra on 04-21-2023 Estimated GFR (MDRD) Amer 96 mL/min >60 [facility] Comment on above: GFR Calc Estimated GFR (MDRD) Non-Af Amer 79 mL/min >60 [facility] Comment on above: Non- GFR Calc Serum or plasma albumin chanell urement (mass/volume)Ordered By: Dr. bIarra on 04-21-2023 Albumin [Mass/Vol] 4.0 g/dL 3.2-5.0 [facility] Serum or plasma albumin/glob ulin mass ratioOrdered By: Dr. Ibarra on 04-21-2023 Albumin/Globulin [Mass ratio] 1.1 {ratio} 0.9-2.4 [facility] Serum or plasma calcium chanell urement (mass/volume)Ordered By: Dr. Ibarra on 04-21-2023 Calcium [Mass/Vol] 9.5 mg/dL 8.5-10.1 [facility] System Serum or plasma cholesterol in HDL measurement (mass/volume)Ordered By: Dr. Ibarra on 04-21-2023 Cholesterol in HDL [Mass/Vol] 49 mg/dL >40 [facility] Comment on above: The drugs N-Acetylcy steine and Metamizole may falsely depress this assay. Reference Range HDL <40 mg/dL Low HDL Cholesterol HDL >or= 60 mg/dL High HDL Cholesterol Serum or plasma cholesterol in VLDL measurement (mass/volume)Ordered By: Dr. Ibarra on 04-21-2023 Cholesterol in VLDL [Mass/Vol] 30 mg/dL 5-40 [facility] Serum or plasma creatinine m easurement (mass/volume)Ordered By: Dr. Ibarra on 04-21-2023 Creatinine [Mass/Vol] 1.02 mg/dL 0.70-1.30 [facility] Comment on above: The validity of the calculated GFR & GFRAA in patients over 70 years has not been determined. Clinical correlation is essential. Serum or plasma low density lipoprotein (LDL) cholesterol measurement (mass/volume)Ordered By: Dr. Ibarra on 04-21-2023 Cholesterol in LDL [Mass/Vol] 99 mg/dL 0-130 [facility] Serum or plasma urea nitroge n measurement (mass/volume)Ordered By: Dr. Ibarra on 04-21-2023 Urea nitrogen [Mass/Vol] 19 mg/dL 7-18 [facility] Thin prep Papanicolaou smear with manual screeningOrdered By: Dr. Ibarra on 04-21-2023 Thin prep Papanicolaou smear with manual screening 20 U/L 15-37 [facility] Thin prep Papanicolaou smear with manual screening 5 5-15 [facility] Office Visiton 10-14-2022 Follow-up visit [id number] Data,Franklyn Gregory 1960 [facility] Provider Department Center 10/14/2022 [id number] [facility] None No family history on file Level of Service:34363 [place] OFFICE/OUTPATIENT ESTABLISHED [facility] 10-19 MIN Reason for Visit and Comments: Follow-up [072825] - Right foot great toe fx Normal [facility] Progress Noteon 10-14-2022 Progress Note [facility] [place] [address] [facility] [address] Dept: [phone] Franklyn Gregory Data 1960 [id number] 10/14/2022 HISTORY OF PRESENT ILLNESS: Franklyn returns for re-evaluation of his right great toe phalanx fracture. Franklyn reports that his pain has decreased since the last visit Franklyn reports that his swelling has decreased since the last visit Franklyn denies calf pain and shortness of breath Franklyn has been weight bearing as tolerated on the right lower extremity in a shoe. In general Franklyn feels that he is doing better than the his last visit Other complaints or issues: None Review of Systems Surgical Risk Factors: Allergies to Metals or Latex: NO Have you been treated for a blood clot: NO Have you had a history of bleeding disorder: NO Have you had a history of Anesthetic problems: NO Do you have tendency to bruise easily: NO Do you experience prolonged or excessive bleeding from cuts or after surgery: NO General/Constitution al: General: no Cancer: NO Acute/Chronic Infections: NO HEENT/Neck: Problems with theThroat: NO Problems with the Eyes: NO Problems with the Ears: NO Problems with the Nose and Sinuses: NO Endocrine: Problems with Diabetes: NO Problems with Thyroid Disorder: NO Thorax: Problems with the Heart: NO Problems with the Lung: no Cardiovascular: Problems with Circulation: NO Problems with High Blood pressure: NO - controlled with medication Gastrointestinal: Problems with Ulcers: NO Problems with the Liver: no Problems with Bowel Habits: NO Genitourinary: Problems with the Genitals: NO Urinary problems: NO Kidney disease or stones: NO Skin: Any general problems: NO Neurologic: Dizziness, blurred vision, headaches, problems with balance : NO Seizures or Stroke: NO Psychiatric: Emotional or Psychological disorders: NO Depression or Anxiety: no PAST MEDICAL HISTORY: Past Medical History: Diagnosis Date High cholesterol Hypertension No Known Allergies PHYSICAL EXAM: Ht 5' 10 (1.778 m) Wt 190 lb (86.2 kg) BMI 27.26 kg/m? This is an age appropriate appearing male who is alert and oriented x 3. The patient appears well nourished. Psychiatric: The patient is able to verbalize normally and seems to have a good understanding of his situation. The right lower extremity is examined. Skin: Skin is warm and dry and ruborous in a dependent position which resolves with elevation, resolving eschar overlying the first metatarsal Lymphatic: No lymphadenopathy Moderate swelling of the forefoot Vascular: Capillary refill in the foot/toes is less than 3 seconds. Neurologic: Sensation is intact to light touch throughout the foot and the ankle . Musculoskeletal: The calf is nontender to palpation. 5/5 strength in the lower extremity ROM: Decreased range of motion great toe Alignment: No obvious deformity Areas of Tenderness: Great toe was nontender to palpation. RADIOGRAPHIC INTERPRETATION: 3 weight bearing views of the right foot were obtained and the following is my interpretation of the findings present of the X-rays: Interval bone healing is noted at the proximal phalanx fracture site of the great toe. Mild incongruence of the great toe interphalangeal joint is noted. No other abnormalities are seen. REVIEW OF RELATED PREVIOUS DOCUMENTATION: No documents related to the current problem(s) were reviewed or no documents were available for review. LABORATORY RESULT INTERPRETATION: No labs were reviewed/No labs available for review DIAGNOSIS: Diagnosis Plan 1. Closed displaced fracture of proximal phalanx of right great toe with routine healing, subsequent encounter 2. Right foot pain XR foot 3+ views right MEDICAL DECISION MAKING: I had a discussion with Franklyn to make sure he has a good understanding of the diagnoses/issues that I think are present today and understands the plan moving forward. I explained to Franklyn that his fracture of the right great toe is in acceptable alignment and is progressively healing as expected As a result it was decided to allow Franklyn to slowly begin to resume his normal activities. Franklyn was instructed to be weight bearing as tolerated on the right lower extremity in a regular shoe. If Franklyn has any problems maintaining this weight bearing status he was instructed to call me so that appropriate instructions can be given. I explained that as he increases his activity level there will likely be some level of discomfort in the area of the injury but if there is pain then he needs to stop the activity. I explained that it can take up to 12 months to be able to participate in pre-injury activities. If his pain is increasing he needs to call for an appointment. Franklyn can continue to elevate the right lower extremity for comfort if needed. I explained to Franklyn that there is a (more content not included)... Normal [facility] XR FOOT 3+ VIEWS RIGHTon XR FOOT 3+ VIEWS RIGHT 3 weight bearing views of the right foot were obtained and the following is my interpretation of the findings present of the X-rays: Interval bone healing is noted at the proximal phalanx fracture site of the great toe. Mild incongruence of the great toe interphalangeal joint is noted. No other abnormalities are seen. Normal [facility] Basophil percentageon 2021 Bilirubin [Mass/Vol] 0.70 mg/dL 0.20-1.00 [facility] Work Phone: Comment on above: For patients on eltr ombopag therapy, use of Dimension [place] TBIL is not recommended. Chloride [Moles/Vol] 107 mmol/L 98-107 [facility] Work Phone: Cholesterol [Mass/Vol] 215 mg/dL <200 [facility] Work Phone: Comment on above: <200 mg/dL Desirable 200-240 mg/dL Borderline >240 mg/dL High Risk Glucose [Mass/Vol] 119 mg/dL 74-106 [facility] Work Phone: Comment on above: Fasting Glucose resu lt from 100 to 125 mg/dL suggests IMPAIRED HOMEOSTASIS per A.D.A. criteria. Potassium [Moles/Vol] 3.9 mmol/L 3.5-5.1 [facility] Work Phone: Protein [Mass/Vol] 8.2 g/dL 6.4-8.2 [facility] Work Phone: Sodium [Moles/Vol] 138 mmol/L 136-145 [facility] Work Phone: Triglyceride [Mass/Vol] 131 mg/dL [facility] Work Phone: Comment on above: The drugs N-Acetylcy steine and Metamizole may falsely depress this assay.Serum Triglycerides Reference Interval Normal <150 mg/dL Borderline high 150 - 199 mg/dL High 200 - 499 mg/dL Very High > or = 500 mg/dL Laboratory - Chemistry and C hemistry - challengeon 04-18-2022 ALP [Catalytic activity/Vol] 80 U/L 45-117 [facility] Work Phone: ALT [Catalytic activity/Vol] 39 U/L 16-61 [facility] Work Phone: CO2 [Moles/Vol] 27.0 mmol/L 21.0-32.0 [facility] Work Phone: Globulin (S) [Mass/Vol] 3.9 g/dL 2.2-4.2 [facility] Work Phone: Urea nitrogen/Creatinine [Mass ratio] 22.3 mg/mg 10-20 [facility] Work Phone: No Panel Informationon 04-18 Estimated GFR (MDRD) Amer 95 mL/min >60 [facility] Work Phone: Comment on above: GFR Calc Estimated GFR (MDRD) Non-Af Amer 78 mL/min >60 [facility] Work Phone: Comment on above: Non- GFR Calc Serum or plasma albumin chanell urement (mass/volume)on 04-18-2022 Albumin [Mass/Vol] 4.3 g/dL 3.2-5.0 [facility] Work Phone: Serum or plasma albumin/glob ulin mass ratioon 04-18-2022 Albumin/Globulin [Mass ratio] 1.1 {ratio} 0.9-2.4 [facility] Work Phone: Serum or plasma calcium chanell urement (mass/volume)on 04-18-2022 Calcium [Mass/Vol] 9.7 mg/dL 8.5-10.1 [facility] Work Phone: Serum or plasma cholesterol in HDL measurement (mass/volume)on 04-18-2022 Cholesterol in HDL [Mass/Vol] 48 mg/dL [facility] Work Phone: Comment on above: The drugs N-Acetylcy steine and Metamizole may falsely depress this assay. Reference Range HDL <40 mg/dL Low HDL Cholesterol HDL >or= 60 mg/dL High HDL Cholesterol Serum or plasma cholesterol in VLDL measurement (mass/volume)on 04-18-2022 Cholesterol in VLDL [Mass/Vol] 26 mg/dL 5-40 [facility] Work Phone: Serum or plasma creatinine m easurement (mass/volume)on 04-18-2022 Creatinine [Mass/Vol] 1.03 mg/dL 0.70-1.30 [facility] Work Phone: Comment on above: The validity of the calculated GFR & GFRAA in patients over 70 years has not been determined. Clinical correlation is essential. Serum or plasma low density lipoprotein (LDL) cholesterol measurement (mass/volume)on 04-18-2022 Cholesterol in LDL [Mass/Vol] 141 mg/dL 0-130 [facility] Work Phone: Serum or plasma urea nitroge n measurement (mass/volume)on 04-18-2022 Urea nitrogen [Mass/Vol] 23 mg/dL 7-18 [facility] Work Phone: Thin prep Papanicolaou smear with manual screeningon 04-18-2022 Thin prep Papanicolaou smear with manual screening 24 U/L 15-37 [facility] Work Phone: Thin prep Papanicolaou smear with manual screening 4 5-15 [facility] Work Phone: Laboratory - Microbiology an d Antimicrobial susceptibilityon 03-20-2022 SARS-CoV-2 (COVID-19) RNA DEQUAN+probe Ql (Unsp spec) Not detected Not Detect [facility] Work Phone: Comment on above: Normal Reference Ran ge: Not DetectedMethod:(RT-PCR) real-time reverse transcriptase PCRLuminex CAROLINA Instrument*The Food and Drug Administration (FDA) has issued an Emergency Use Authorization (EAU) for the CAROLINA SARS-CoV-2 Assay for the rapid detection of the virus that causes COVID-19. This test has been validated, but the FDAs independent review of this validation is pending.*Negative results do not preclude infection and should not be used as the sole basis for treatment or patient management. Optimum specimen types and timing for peak viral levels during infections caused by SARS-CoV-2 have not been determined. Collection of multiple specimens from the same patient may be necessary to detect the virus. The possibility of a false negative result should be considered if the patient has clinical presentation or has had recent exposure. Vital Signs Date Time Vital Sign Value Performing Clinician Faci lity 04-19-2025 09:11-0400 Body height 177.[address] Vincenzo Ibarra DO Work Phone: [facility] 04-19-2025 09:11-0400 Body mass index (BMI) [Ratio] 26.9 kg/m2 Dr. Vincenzo Ibarra DO Work Phone: [facility] 04-19-2025 09:11-0400 Body temperature 97.7 [degF] Dr. Vincenzo Ibarra DO Work Phone: [facility] 04-19-2025 09:11-0400 Body weight 85.[address] Vincenzo Ibarra DO Work Phone: [facility] 04-19-2025 09:11-0400 Diastolic blood pressure 70 mm[Hg] Dr. Vincenzo Ibarra DO Work Phone: [facility] 04-19-2025 09:11-0400 Heart rate 92 /min Dr. Vincenzo Ibarra DO Work Phone: [facility] 04-19-2025 09:11-0400 Respiratory rate 18 /min Dr. Vincenzo Ibarra DO Work Phone: [facility] 04-19-2025 09:11-0400 SaO2% (BldA) [Mass fraction] 97 % Dr. Vincenzo Ibarra DO Work Phone: [facility] 04-19-2025 09:11-0400 Systolic blood pressure 116 mm[Hg] Dr. Vincenzo Ibarra DO Work Phone: [facility] 01-05-2025 14:49-0500 Body height 177.[address] Vincenzo Ibarra DO Work Phone: [facility] 01-05-2025 14:49-0500 Body mass index (BMI) [Ratio] 27.8 kg/m2 Dr. Vincenzo Ibarra DO Work Phone: [facility] 01-05-2025 14:49-0500 Body temperature 98.4 [degF] Dr. Vincenzo Ibarra DO Work Phone: [facility] 01-05-2025 14:49-0500 Body weight 87.[address] Vincenzo Ibarra DO Work Phone: [facility] 01-05-2025 14:49-0500 Diastolic blood pressure 80 mm[Hg] Dr. Vincenzo Ibarra DO Work Phone: [facility] 01-05-2025 14:49-0500 Heart rate 84 /min Dr. Vincenzo Ibarra DO Work Phone: [facility] 01-05-2025 14:49-0500 Respiratory rate 16 /min Dr. Vincnezo Ibarra DO Work Phone: [facility] 01-05-2025 14:49-0500 SaO2% (BldA) [Mass fraction] 99 % Dr. Vincenzo Ibarra DO Work Phone: [facility] 01-05-2025 14:49-0500 Systolic blood pressure 130 mm[Hg] Dr. Vincenzo Ibarra DO Work Phone: [facility] 11-08-2024 10:58-0500 Body mass index (BMI) [Ratio] 27.3 kg/m2 Dr. Vincenzo Ibarra DO Work Phone: [facility] 11-08-2024 10:58-0500 Body temperature 98.2 [degF] Dr. Vincenzo Ibarra DO Work Phone: [facility] 11-08-2024 10:58-0500 Body weight 86.[address] Vincenzo Ibarra DO Work Phone: [facility] 11-08-2024 10:58-0500 Diastolic blood pressure 68 mm[Hg] Dr. Vincenzo Ibarra DO Work Phone: [facility] 11-08-2024 10:58-0500 Heart rate 105 /min Dr. Vincenzo Ibarra DO Work Phone: [facility] 11-08-2024 10:58-0500 Respiratory rate 12 /min Dr. Vincenzo Ibarra DO Work Phone: [facility] 11-08-2024 10:58-0500 SaO2% (BldA) [Mass fraction] 97 % Dr. Vincenzo Ibarra DO Work Phone: [facility] 11-08-2024 10:58-0500 Systolic blood pressure 112 mm[Hg] Dr. Vincenzo Ibarra DO Work Phone: [facility] 10-19-2024 08:51-0500 Body mass index (BMI) [Ratio] 28.3 kg/m2 Dr. Vincenzo Ibarra DO Work Phone: [facility] 10-19-2024 08:51-0500 Body temperature 99 [degF] Dr. Vincenzo Ibarra DO Work Phone: [facility] 10-19-2024 08:51-0500 Body weight 89.[address] Vincenzo Ibarra DO Work Phone: [facility] 10-19-2024 08:51-0500 Diastolic blood pressure 82 mm[Hg] Dr. Vincenzo Ibarra DO Work Phone: [facility] 10-19-2024 08:51-0500 Heart rate 102 /min Dr. Vincenzo Ibarra DO Work Phone: [facility] 10-19-2024 08:51-0500 Respiratory rate 16 /min Dr. Vincenzo Ibarra DO Work Phone: [facility] 10-19-2024 08:51-0500 SaO2% (BldA) [Mass fraction] 97 % Dr. Vincenzo Ibarra DO Work Phone: [facility] 10-19-2024 08:51-0500 Systolic blood pressure 128 mm[Hg] Dr. Vincenzo Ibarra DO Work Phone: [facility] 04-21-2023 10:20-0400 Body height 177.[address] Vincenzo Ibarra Work Phone: [facility] 04-21-2023 10:20-0400 Body mass index (BMI) [Ratio] 28 kg/m2 Dr. Vincenzo Ibarra Work Phone: [facility] 04-21-2023 10:20-0400 Body temperature 97.1 [degF] Dr. Vincenzo Ibarra Work Phone: [facility] 04-21-2023 10:20-0400 Body weight 88.[address] Vincenzo Ibarra Work Phone: [facility] 04-21-2023 10:20-0400 Diastolic blood pressure 80 mm[Hg] Dr. Vincenzo Ibarra Work Phone: [facility] 04-21-2023 10:20-0400 Heart rate 91 /min Dr. Vincenzo Ibarra Work Phone: [facility] 04-21-2023 10:20-0400 Respiratory rate 16 /min Dr. Vincenzo Ibarra Work Phone: [facility] 04-21-2023 10:20-0400 SaO2% (BldA) [Mass fraction] 97 % Dr. Vincenzo Ibarra Work Phone: [facility] 04-21-2023 10:20-0400 Systolic blood pressure 122 mm[Hg] Dr. Vincenzo Ibarra Work Phone: [facility] 04-18-2022 10:48-0400 Body height 177.[address] Vincenzo Ibarra Work Phone: [facility] Work Phone: 04-18-2022 10:48-0400 Body mass index (BMI) [Ratio] 27.1 kg/m2 Dr. Vincenzo Ibarra Work Phone: [facility] Work Phone: 04-18-2022 10:48-0400 Body temperature 98 [degF] Dr. Vincenzo Ibarra Work Phone: [facility] Work Phone: 04-18-2022 10:48-0400 Body weight 85.[address] Vincenzo Ibarra Work Phone: [facility] Work Phone: 04-18-2022 10:48-0400 Diastolic blood pressure 82 mm[Hg] Dr. Vincenzo Ibarra Work Phone: [facility] Work Phone: 04-18-2022 10:48-0400 Heart rate 89 /min Dr. Vincenzo Ibarra Work Phone: [facility] Work Phone: 04-18-2022 10:48-0400 Respiratory rate 16 /min Dr. Vincenzo Ibarra Work Phone: [facility] Work Phone: 04-18-2022 10:48-0400 SaO2% (BldA) [Mass fraction] 98 % Dr. Vincenzo Ibarra Work Phone: [facility] Work Phone: 04-18-2022 10:48-0400 Systolic blood pressure 130 mm[Hg] Dr. Vincenzo Ibarra Work Phone: [facility] Work Phone: 03-15-2022 12:54-0400 Body height 177.[address] Vincenzo Ibarra Work Phone: [facility] Work Phone: 03-15-2022 12:54-0400 Body mass index (BMI) [Ratio] 27.6 kg/m2 Dr. Vincenzo Ibarra Work Phone: [facility] Work Phone: 03-15-2022 12:54-0400 Body temperature 97.4 [degF] Dr. Vincenzo Ibarra Work Phone: [facility] Work Phone: 03-15-2022 12:54-0400 Body weight 87.[address] Vincenzo Ibarra Work Phone: [facility] Work Phone: 03-15-2022 12:54-0400 Diastolic blood pressure 76 mm[Hg] Dr. Vincenzo Ibarra Work Phone: [facility] Work Phone: 03-15-2022 12:54-0400 Heart rate 84 /min Dr. Vincenzo Ibarra Work Phone: [facility] Work Phone: 03-15-2022 12:54-0400 Respiratory rate 16 /min Dr. Vincenzo Ibarra Work Phone: [facility] Work Phone: 03-15-2022 12:54-0400 SaO2% (BldA) [Mass fraction] 97 % Dr. Vincenzo Ibarra Work Phone: [facility] Work Phone: 03-15-2022 12:54-0400 Systolic blood pressure 122 mm[Hg] Dr. Vincenzo Ibarra Work Phone: [facility] Work Phone: Encounters Encounter Date Encounter Type Care Provider Facility Start: 04-19-2025 End: 04-19-[address] Vincenzo Ibarra DO Work Phone: [facility] Work Phone: Start: 04-19-2025 End: 04-19-[address] Vincenzo Gregory DO -[facility] Work Phone: Start: 01-07-2025 End: 01-07-[address] Vincenzo Ibarra DO Work Phone: [facility] Work Phone: Start: 01-07-2025 End: 01-07-[address] Vincenzo Gregory DO -[facility] Work Phone: Start: 01-07-2025 End: 01-07-2025 ambulatory Vincenzo Ibarra Facility:[facility] Start: 01-05-2025 End: 01-05-[address] Vincenzo Gregory DO -[facility] Work Phone: Start: 01-05-2025 End: 01-05-2025 ambulatory Vincenzo Ibarra Facility:[facility] Start: 11-08-2024 End: 11-08-2024 Patient encounter procedure Franck Frankkalen [employer] COORDINATOR-C -[facility] Work Phone: Start: 11-08-2024 End: 11-08-2024 ambulatory Vincenzo Ibarra Facility:[facility] Start: 10-19-2024 End: 10-19-[address] Vincenzo Gregory DO -[facility] Work Phone: Start: 10-19-2024 End: 10-19-2024 ambulatory Vincenzo Ibarra Facility:[facility] Start: 06-23-2024 End: 06-23-2024 ambulatory Warren BARRETO Facility:[facility] Start: 06-16-2024 End: 06-16-2024 ambulatory Vinecnzo Ibarra Facility:[facility] Start: 04-21-2024 End: 04-21-2024 ambulatory Vincenzo Ibarra Facility:[facility] Start: 04-21-2024 End: 04-21-2024 ambulatory Vincenzo Ibarra Facility:[facility] Start: 04-21-2023 End: 04-21-[address] Vincenzo Ibarra Work Phone: [facility] Work Phone: Start: 04-21-2023 End: 04-21-[address] Vincenzo Ibarra Work Phone: [facility] Start: 10-14-2022 End: 10-14-[address] [facility] Start: 04-18-2022 End: 04-18-[address] Vincenzo Ibarra Work Phone: [facility] Start: 03-20-2022 End: 03-20-[address] Vincenzo Ibarra Work Phone: [facility]-Laboratory, Specimen Start: 03-15-2022 End: 03-15-[address] Vincenzo Ibarra Work Phone: [facility] Start: 01-08-2022 End: 01-08-[address] Vincenzo Ibarra Work Phone: [facility] Int Med Virtual Procedures Date Procedure Procedure Detail Performing Clinician Start: 01-07-2025 Plain x-ray of elbow Dr Balwinder Ibarra DO Work Phone: H/O: surgery Status post left foot surgery Dr. Vincenzo Ibarra Work Phone: History of repair of inguinal hernia Hx of left inguinal hernia repair Dr. Vincenzo Ibarra Work Phone: Comment on above: 04/07/2018 Plan of Treatment Date Care Activity Detail Author Comprehensive metabo lic 1999 panel - Serum or Plasma [facility] Lipid 1995 panel - Serum or Plasma [facility] Prostate specific antigen measurement [facility] Immunizations Immunization Date Immunization Notes Care Provider Ana Lilia carolina 07-30-2023 influenza, injectabl e, quadrivalent, preservative free Dr. Vincenzo Ibarra DO Work Phone: [facility] 12-08-[address] Vincenzo Ibarra Work Phone: [facility] 09-24-2021 pneumococcal conjuga te vaccine, [address] Vincenzo Ibarra Work Phone: [facility] 09-24-[address] Vincenzo Ibarra Work Phone: [facility] 09-05-2021 influenza, injectabl e, quadrivalent, preservative free Dr. Vincenzo Ibarra DO Work Phone: [facility] 09-05-2021 influenza, seasonal, injectable Dr. Vincenzo Ibarra Work Phone: [facility] 09-14-2020 influenza, injectable,quadrivalent , preservative free, pediatric Dr. Vincenzo Ibarra Work Phone: [facility] 09-14-2020 Flucelvax Quad [id number] (PF) (flu vac qs 2019(4 yr up)CD(PF)) 60 mcg ([address] Vincenzo Ibarra Work Phone: [facility] Work Phone: Payers Date Payer Category Payer Self-pay [id number] 2021 Medicare [id number] Medicare [id number] Unknown [id number] 2.16.8 [id number] Unknown [id number] 2.16.8 [id number] Unknown [id number] 2.16.8 [id number] Unknown [id number] 2.16.8 [id number] Unknown [id number] 2.16.8 [id number] Unknown [id number] 2.16.8 [id number] Unknown [id number] 2.16.8 [id number] Unknown [id number] 2.16.8 [id number] Social History Date Type Detail Facility Start: 03-15-2022 End: 04-21-2023 Tobacco smoking status [facility] Unknown if ever smoked [facility] Start: 09-30-2018 Cigarettes [facility] Start: 1960 Sex Assigned At Male [facility] Start: 06-23-2024 Tobacco smoking stat us [facility] Ex-smoker (finding) [facility] Start: 01-21-2025 Sex Male (finding) [facility] Medical Equipment Procedure Code Equipment Code Equipment Origin al Text Equipment Identifier Dates MESH,SELF FIX [id number] FDA Start: 04-07-2018 PARTIAL THREAD CANNULATED SCR2 FDA Start: 10-02-2018 PARTIAL THREAD CANNULATED SCR2 FDA Start: 10-02-2018 MESH,SELF FIX [id number] FDA Start: 04-07-2018 PARTIAL THREAD CANNULATED SCR2 FDA Start: 10-02-2018 PARTIAL THREAD CANNULATED SCR2 FDA Start: 10-02-2018 MESH,SELF FIX [id number] FDA Start: 04-07-2018 PARTIAL THREAD CANNULATED SCR2 FDA Start: 10-02-2018 PARTIAL THREAD CANNULATED SCR2 FDA Start: 10-02-2018 MESH,SELF FIX [id number] FDA Start: 04-07-2018 PARTIAL THREAD CANNULATED SCR2 FDA Start: 10-02-2018 PARTIAL THREAD CANNULATED SCR2 FDA Start: 10-02-2018 MESH,SELF FIX [id number] FDA Start: 04-07-2018 PARTIAL THREAD CANNULATED SCR2 FDA Start: 10-02-2018 PARTIAL THREAD CANNULATED SCR2 FDA Start: 10-02-2018 Radiology Diagnostic study note 01-07-2025 Note Date & Type Note Facility 01-07-2025 Radiology Diagnostic study note [facility] Imaging Services [address] [place] [address] Elbow min 3 Views MR#: [id number] Acct: [id number] Name: FRANKLYN JEAN BAPTISTE Rep #: [id number] : 1960 M 64 From: Brandee Quiñones MD PCP: Dr. Vincenzo Ibarra DO Status: RE G CLI Study:Elbow min 3 Views Date of Exam: Exam# [id number] Ordering Dr: Do murphy Ibarra DO PROCEDURE: ELBOW MIN 3 VIEWS REASON FOR EXAM: Swelling of elbow TECHNIQUE: 3 view(s) of each elbow COMPARISON: None. FINDINGS: LEFT ELBOW: No visible fracture. No suspicious bone lesion. Normal alignment. No effusion. Soft tissues are unremarkable. RAD/Elbow min 3 Views IMPRESSION: No acute osseous or significant abnormality in the left elbow Reading Location: [facility] CC: Dr. Vincenzo Ibarra DO ~ [employer]: Signed [facility] Evaluation note 01-05-2025 Note Date & Type Note Facility 01-05-2025 Evaluation note Diagnosis Onset Date Resolution Swelling of left elbow acute Fe bruary 2024 2:28pm Nevus acute April 19 8:43am Bipolar 1 disorder chronic April 102024 8:43am Hyperlipemia chronic April 19, 025 8:43am Hypertension chronic April 19 025 8:43am [facility] Work Phone: Evaluation note 10-19-2024 Note Date & Type Note Facility 10-19-2024 Evaluation note Diagnosis Onset Date Resolution Bipolar 1 disorder chronic Decemb er 2023 8:46am Hyperlipemia chronic October 8:46am Hypertension chronic October 8:46am Viral URI with cough acute Dece mber 2023 10:43am Swelling of left elbow acute Fe bruary 2024 2:28pm [facility] Work Phone: Evaluation note Note Date & Type Note Facility Evaluation note No assessment information availa ble [facility] Work Phone: Evaluation note Note Date & Type Note Facility Evaluation note Diagnosis Onset Date Bipolar 1 disorder chronic Hyperlipemia chronic Hypertension chronic [facility] Work Phone: Evaluation note Note Date & Type Note Facility Evaluation note Diagnosis Onset Date Bipolar 1 disorder chronic history of leg surgery chron ic Hyperlipemia chronic Hypertension chronic [facility] Work Phone: Reason for referral (narrative) Note Date & Type Note Facility Reason for referral (narrative) No reason for referral information available [facility] Work Phone: Chief Complaint and Reason for Visit Chief Complaint cell phone-cold sx coughing, sneezing, etc. Chief Complaint cell phone-cold sx coughing, sneezing, etc. 6 M FU Reason for Visit Bipolar 1 disorder Hyperlipemia Hypertension Chief Complaint 6 M FU Reason for Visit Bipolar 1 disorder history of leg surgery Hyperlipemia Hypertension Chief Complaint Admit Date 6 m fu October 19, 2024 8:46am CHEST CASSIDY/BA/FEVER/SINUS CMP October 122023 10:43am LFT ELBOW ISSUES January 05, 2025 2:28pm swelling of elbow January 07, 2025 9:32am Reason for Visit Admit Date Bipolar 1 disorder October 19, 2024 8:46am Hyperlipemia October 19, 2024 8:46am Hypertension October 19, 2024 8:46am Viral URI with cough November 08, 2024 10:43am Swelling of left elbow January 05 2:28pm Chief Complaint Admit Date LFT ELBOW ISSUES January 05, 2025 2:28pm swelling of elbow January 07, 2025 9:32am 6 m fu April 19, 2025 8:43 am Reason for Visit Admit Date Swelling of left elbow January 05 2:28pm Nevus April 19, 2025 8:43 am Bipolar 1 disorder April 19, 2025 8:43 am Hyperlipemia April 19, 2025 8:43 am Hypertension April 19, 2025 8:43 am Family History Relationship Condition Age at Onset Recorded Date/T vivek father Malignant neoplasm of colon Unknown mother Malignant neoplasm Unknown uncle Malignant neoplasm of colon Unknown Advance Directives Advance Directive Response Recorded Date/ Time Living Will Yes March 19, 2021 8 :03am Power of Veterinary Attendant Yes March 19, 2021 8:03am Advance Directive Response Recorded Date/ Time Living Will Yes September 02 8:10am Power of Veterinary Attendant Yes September 02, 2023 8:10am Summary Purpose Additional Source Comments Goals (unrecognized section and content) Goals may be documented in a n alternate sectionGoals may be documented in an alternate sectionGoals may be documented in an alternate sectionGoals may be documented in an alternate sectionGoals may be documented in an alternate section (unrecognized sect ion and content) No Status Records FoundNo Status Records Found INFORMATION SOURCE (unrecogn ized section and content) DATE CREATED AUTHOR 10/15/2022 [email or web address] [facility] DATE CREATED AUTHOR AUTHOR'S ORGANIZ ATION 01/24/2025 [facility] Care Teams (unrecognized sec tion and content) Team Status: Active Member Role Status Dates Dr. Vincenzo Ibarra DO Family Provider Active Dr. Vincenzo Ibarra DO Primary Care Provider Active Team Status: Inactive Member Role Status Dates Dr. Vincenzo Ibarra DO Primary Care Pr ovider, Attending Provider, Referring Provider Active Team Status: Inactive Member Role Status Dates Dr. Vincenzo Ibarra DO Primary Care Provider, Attend ing Provider Active Team Status: Inactive Member Role Status Dates Dr. Vincenzo Ibarra DO Primary Care Provider Active Start: October 19, 2024 End: October 19, 2024 Dr. Vincenzo Ibarra DO Attending Provider Active Start: October 19, 2024 End: October 19, 2024 Dr. Vincenzo Ibarra DO Referring Provider Active Start: October 19, 2024 End: October 19, 2024 Team Status: Inactive Member Role Status Dates Dr. Vincenzo Ibarra DO Primary Care Provider Active Start: November 08, 2024 End: November 08, 2024 Dr. Vincenzo Ibarra DO Referring Provider Active Start: November 08, 2024 End: November 08, 2024 JENNIFER Jamison Attending Provider Active Star t: November 08, 2024 End: November 08, 2024 Team Status: Inactive Member Role Status Dates Dr. Vincenzo Ibarra DO Primary Care Provider Active Start: January 05, 2025 End: January 05, 2025 Dr. Vicnenzo Ibarra DO Attending Provider Active Start: January 05, 2025 End: January 05, 2025 Dr. Vincenzo Ibarra DO Referring Provider Active Start: January 05, 2025 End: January 05, 2025 Team Status: Inactive Member Role Status Dates Dr. Vincenzo Ibarra DO Primary Care Provider Active Start: January 07, 2025 End: January 07, 2025 Dr. Vincenzo Ibarra DO Attending Provider Active Start: January 07, 2025 End: January 07, 2025 Dr. Vincenzo Ibarra DO Referring Provider Active Start: January 07, 2025 End: January 07, 2025 Team Status: Inactive Member Role Status Dates Dr. Vincenzo Ibarra DO Primary Care Provider Active Start: April 19, 2025 End: April 19, 2025 Dr. Vincenzo Ibarra DO Attending Provider Active Start: April 19, 2025 End: April 19, 2025 Dr. Vincenzo Ibarra DO Referring Provider Active Start: April 19, 2025 End: April 19, 2025 FOR RECORDS PERTAINING TO PATIENTS WHO ARE OR HAVE BEEN ENROLLED IN A CHEMICAL DEPENDENCY/SUBSTANCEABUSE PROGRAM, SOME INFORMATION MAY BE OMITTED. This clinical summary was aggregated from multiple sources. Caution should be exercised in using it in the provision of clinical care. This summary normalizes information from multiple sources, and as a consequence, information in this document may materially change the coding, format and clinical context of patient data. In addition, data may be omitted in some cases. CLINICAL DECISIONS SHOULD BE BASED ON THE PRIMARY CLINICAL RECORDS. [facility] [employer] provides no warranty or guarantee of the accuracy or completeness of information in this document.
== END | disposition home or self-care (01) ==
LOC: BIMLAB 09:50
PROVIDERS: PCP Family Medicine; Referring Provider Family Medicine; Visit Provider Family Medicine
DX: E78.5 Hyperlipidemia, unspecified (principal); R35.1 Nocturia; Z12.5 Encounter for screening for malignant neoplasm of prostate
CPT/HCPCS: 36415; 80053; 80061; 84153; G0103